=== PATIENT | female | born 1940 | race Caucasian/White ===

== ENCOUNTER 2019-01-14 13:06 | Inpatient (IN) | payer MEDICARE, OTHER, SELFPAY ==
[2019-01-14] VITALS (14 sets, daily range): BP systolic 70–180; BP diastolic 35–83; PULSE 60–103; RESP 14–21; TEMP 36.3–37.3; O2SAT 96–100
[2019-01-14] MEDS: Normal Saline 1,000 ML 1000 ML IV (13:46)
--- NOTE | 2019-01-14 13:49 | W.ED.GENAD ---
Discharge Plan Discharge Details Chief Complaint: Nausea/Vomit/Diar Primary Care Provider: Radhika,Local ED Provider: Jory Faust Home Meds and New Rx's Prescriptions: No Action atorvastatin 40 mg Tablet 40 mg PO DAILY RF: 0 metoprolol succinate 50 mg Tablet Extended Release 24 Hr 50 mg PO BID RF: 0 citalopram 10 mg Tablet 10 mg PO DAILY RF: 0 clopidogrel [Plavix] 75 mg Tablet 75 mg PO DAILY RF: 0 aspirin [Aspir-81] 81 mg Tablet,Delayed Release (Dr/Ec) 81 mg PO DAILY RF: 0 spironolactone 25 mg Tablet 25 mg PO DAILY RF: 0 lorazepam [Ativan] 1 mg Tablet 1 mg PO PRN PRNRF: 0 lisinopril 2.5 mg Tablet 2.5 mg PO DAILY RF: 0 levetiracetam 1,000 mg Tablet 1,000 mg PO BID RF: 0 Januvia 50 mg Tablet 50 mg PO DAILY RF: 0 Tresiba FlexTouch U-100 100 unit/mL (3 mL) Insulin Pen 24 unit SUBCUT HS RF: 0 Medical Decision Making Helena De La Cruz is a 78 y/o woman with h/o hypertension, coronary artery disease status post stents x6, insulin dependent diabetes presenting to the emergency department with abdominal pain, vomiting, diarrhea of sudden onset at 11:30 AM today, initially hypotensive in the emergency department. On exam patient is elderly and somewhat ill-appearing, appears uncomfortable. Mild tenderness palpation of the right lower quadrant on exam without peritoneal signs. Concern for mesenteric ischemia versus appendicitis versus gastroenteritis versus other. Plan for screening labs, IV fluid hydration, telemetry, IV morphine. Patient with leukocytosis, lactate elevated at 3.8, creatinine elevated at 1.7. Ceftriaxone and Flagyl initiated for leukocytosis, elevated lactate, unknown source of possible infectious process. Patient and her son report that she has no known history of kidney disease, suspect acute kidney injury secondary to today's illness. Given exam, history, elevated lactate, I have significant concern for mesenteric ischemia. I discussed imaging possibilities with Dr. Blackwell radiology, lower contrast dose options likely to be nondiagnostic. Plan for CTA abdomen/pelvis. I did discuss the plan with the patient and the risks of possible permanent kidney injury resulting in permanent dialysis. Patient verbalized understanding of this risk and agreed to the plan. We will continue IV fluid hydration. Per radiology CT shows colitis, vessels patent, no bowel obstruction. Plan to admit for colitis at this time. On reassessment patient reports pain improved. Blood pressure 140/60. We will continue IV fluid hydration. Clinical impression: Colitis Disposition: [facility] inpatient Medical Records Medical records reviewed: Yes I reviewed the patient's medical records. Imaging Data Radiologic Study: Attestation: I personally reviewed and interpreted this imaging study as follows: Radiologist's impression: 01/14/19 14:00 Stool Clostridioides difficile Screen - Final Laboratory Tests Range/Units 01/14/19 01/14/19 01/14/19 13:40 13:40 13:40 WBC (4.4-10.8) k/cumm 14.83 H RBC (4.00-5.20) m/cumm 4.73 Hgb (12.0-15.5) g/dL 13.8 Hct (36.0-46.0) % 42.0 MCV (80-95) fL 88.8 MCH (27.0-33.0) pg 29.2 MCHC (32.0-36.0) g/dL 32.9 RDW (11.7-14.6) % 13.3 Plt Count (130-400) x1000/uL 425 H MPV (8.0-11.0) fL 10.1 Immature Gran % 0.4 Neutrophils % 78.3 Lymphocytes % 14.0 Monocytes % 6.1 Eosinophils % 0.9 Basophils % 0.3 Absolute Neutrophils (1.2-6.7) k/cumm 11.61 H Absolute Lymphocytes (1.2-3.4) k/cumm 2.08 Absolute Monocytes (0.11-0.7) k/cumm 0.90 H Absolute Eosinophils (0.0-0.7) k/cumm 0.13 Absolute Basophils (0.0-0.2) k/cumm 0.04 PT (9.3-11.0) sec INR (0.9-1.1) Sodium (136-145) mmol/L 138 Potassium (3.5-5.1) mmol/L 3.9 Chloride (98-107) mmol/L 101 Carbon Dioxide (21.0-32.0) mmol/L 22.7 Anion Gap (3-11) mmol/L 14.3 H BUN (7-18) mg/dL 27 H Creatinine (0.55-1.02) mg/dL 1.73 H Estimated GFR/1.73 m2 (mL/min/1.73m2) 28.64 Glucose (74-106) mg/dL 264 H Lactate (0.6-1.4) mmol/L 3.8 H* Calcium (8.5-10.1) mg/dL 9.8 Magnesium (1.8-2.4) mg/dL 1.9 Total Bilirubin (0.2-1.0) mg/dL 0.8 AST (15-37) U/L 23 ALT (14-59) U/L 32 Alkaline Phosphatase (46-116) U/L 345 H Troponin I (<0.06) ng/Ml < 0.05 NT-Pro-B Natriuret Pep (<300) pg/mL 252 Total Protein (6.4-8.2) g/dL 8.4 H Albumin (3.4-5.0) g/dL 4.2 Lipase (73-393) U/L 428 H Patient ABO/Rh Antibody Screen Range/Units 01/14/19 01/14/19 13:40 13:40 WBC (4.4-10.8) k/cumm RBC (4.00-5.20) m/cumm Hgb (12.0-15.5) g/dL Hct (36.0-46.0) % MCV (80-95) fL MCH (27.0-33.0) pg MCHC (32.0-36.0) g/dL RDW (11.7-14.6) % Plt Count (130-400) x1000/uL MPV (8.0-11.0) fL Immature Gran % Neutrophils % Lymphocytes % Monocytes % Eosinophils % Basophils % Absolute Neutrophils (1.2-6.7) k/cumm Absolute Lymphocytes (1.2-3.4) k/cumm Absolute Monocytes (0.11-0.7) k/cumm Absolute Eosinophils (0.0-0.7) k/cumm Absolute Basophils (0.0-0.2) k/cumm PT (9.3-11.0) sec 10.4 INR (0.9-1.1) 1.0 Sodium (136-145) mmol/L Potassium (3.5-5.1) mmol/L Chloride (98-107) mmol/L Carbon Dioxide (21.0-32.0) mmol/L Anion Gap (3-11) mmol/L BUN (7-18) mg/dL Creatinine (0.55-1.02) mg/dL Estimated GFR/1.73 m2 (mL/min/1.73m2) Glucose (74-106) mg/dL Lactate (0.6-1.4) mmol/L Calcium (8.5-10.1) mg/dL Magnesium (1.8-2.4) mg/dL Total Bilirubin (0.2-1.0) mg/dL AST (15-37) U/L ALT (14-59) U/L Alkaline Phosphatase (46-116) U/L Troponin I (<0.06) ng/Ml NT-Pro-B Natriuret Pep (<300) pg/mL Total Protein (6.4-8.2) g/dL Albumin (3.4-5.0) g/dL Lipase (73-393) U/L Patient ABO/Rh A Negative Antibody Screen Negative Lab Data Lab results reviewed: Yes I reviewed the patient's lab results. Labs: 01/14/19 14:00 Stool Clostridioides difficile Screen - Final Laboratory Tests Range/Units 01/14/19 01/14/19 01/14/19 13:40 13:40 13:40 WBC (4.4-10.8) k/cumm 14.83 H RBC (4.00-5.20) m/cumm 4.73 Hgb (12.0-15.5) g/dL 13.8 Hct (36.0-46.0) % 42.0 MCV (80-95) fL 88.8 MCH (27.0-33.0) pg 29.2 MCHC (32.0-36.0) g/dL 32.9 RDW (11.7-14.6) % 13.3 Plt Count (130-400) x1000/uL 425 H MPV (8.0-11.0) fL 10.1 Immature Gran % 0.4 Neutrophils % 78.3 Lymphocytes % 14.0 Monocytes % 6.1 Eosinophils % 0.9 Basophils % 0.3 Absolute Neutrophils (1.2-6.7) k/cumm 11.61 H Absolute Lymphocytes (1.2-3.4) k/cumm 2.08 Absolute Monocytes (0.11-0.7) k/cumm 0.90 H Absolute Eosinophils (0.0-0.7) k/cumm 0.13 Absolute Basophils (0.0-0.2) k/cumm 0.04 PT (9.3-11.0) sec INR (0.9-1.1) Sodium (136-145) mmol/L 138 Potassium (3.5-5.1) mmol/L 3.9 Chloride (98-107) mmol/L 101 Carbon Dioxide (21.0-32.0) mmol/L 22.7 Anion Gap (3-11) mmol/L 14.3 H BUN (7-18) mg/dL 27 H Creatinine (0.55-1.02) mg/dL 1.73 H Estimated GFR/1.73 m2 (mL/min/1.73m2) 28.64 Glucose (74-106) mg/dL 264 H Lactate (0.6-1.4) mmol/L 3.8 H* Calcium (8.5-10.1) mg/dL 9.8 Magnesium (1.8-2.4) mg/dL 1.9 Total Bilirubin (0.2-1.0) mg/dL 0.8 AST (15-37) U/L 23 ALT (14-59) U/L 32 Alkaline Phosphatase (46-116) U/L 345 H Troponin I (<0.06) ng/Ml < 0.05 NT-Pro-B Natriuret Pep (<300) pg/mL 252 Total Protein (6.4-8.2) g/dL 8.4 H Albumin (3.4-5.0) g/dL 4.2 Lipase (73-393) U/L 428 H Patient ABO/Rh Antibody Screen Range/Units 01/14/19 01/14/19 13:40 13:40 WBC (4.4-10.8) k/cumm RBC (4.00-5.20) m/cumm Hgb (12.0-15.5) g/dL Hct (36.0-46.0) % MCV (80-95) fL MCH (27.0-33.0) pg MCHC (32.0-36.0) g/dL RDW (11.7-14.6) % Plt Count (130-400) x1000/uL MPV (8.0-11.0) fL Immature Gran % Neutrophils % Lymphocytes % Monocytes % Eosinophils % Basophils % Absolute Neutrophils (1.2-6.7) k/cumm Absolute Lymphocytes (1.2-3.4) k/cumm Absolute Monocytes (0.11-0.7) k/cumm Absolute Eosinophils (0.0-0.7) k/cumm Absolute Basophils (0.0-0.2) k/cumm PT (9.3-11.0) sec 10.4 INR (0.9-1.1) 1.0 Sodium (136-145) mmol/L Potassium (3.5-5.1) mmol/L Chloride (98-107) mmol/L Carbon Dioxide (21.0-32.0) mmol/L Anion Gap (3-11) mmol/L BUN (7-18) mg/dL Creatinine (0.55-1.02) mg/dL Estimated GFR/1.73 m2 (mL/min/1.73m2) Glucose (74-106) mg/dL Lactate (0.6-1.4) mmol/L Calcium (8.5-10.1) mg/dL Magnesium (1.8-2.4) mg/dL Total Bilirubin (0.2-1.0) mg/dL AST (15-37) U/L ALT (14-59) U/L Alkaline Phosphatase (46-116) U/L Troponin I (<0.06) ng/Ml NT-Pro-B Natriuret Pep (<300) pg/mL Total Protein (6.4-8.2) g/dL Albumin (3.4-5.0) g/dL Lipase (73-393) U/L Patient ABO/Rh A Negative Antibody Screen Negative ECG Data Attestation: I personally reviewed and interpreted this ECG (s) as follows: Interpretation: EKG shows sinus rhythm at 62, normal axis, T wave flattening inferiorly and anteriorly, poor R wave progression, no prior available for comparison, nondiagnostic EKG HPI General Mode of arrival: ambulatory. Date/Time Provider Initiated Documentation: 01/14/19 13:09. Limitations to Documentation: no limitations. Information obtained by: patient, family, RN notes reviewed and old records reviewed. HPI Narrative: Helena De La Cruz is a 78-year-old woman with a history of hypertension, coronary artery disease status post stents x6, insulin dependent diabetes presenting to the emergency department with abdominal pain, vomiting, diarrhea. Patient lives in [place], and traveled here to [place] to visit her son 1 week ago. Patient is accompanied to the emergency department by her son and [id number] who also provide the history. They report that patient has been in her usual state of health until today at approximately 1130am. Patient reports that she developed cramping lower abdominal pain that felt that she needed to have a bowel movement but could not, and she then subsequently developed vomiting and diarrhea. She reports that she has had 2 episodes of vomiting (yellow emesis) and 2 episodes of light brown diarrhea. She has had waxing and waning lower abdominal pain worse in the right lower quadrant since onset of symptoms. No fever, no cough, no shortness of breath, no rash, no numbness, no focal weakness. Does feel very generally weak since onset of symptoms. Was previously eating and drinking as usual. Related Data Home Medications Medication Instructions Recorded Confirmed aspirin [Aspir-81] 81 mg PO DAILY 01/14/19 01/14/19 atorvastatin 40 mg PO DAILY 01/14/19 01/14/19 citalopram 10 mg PO DAILY 01/14/19 01/14/19 clopidogrel [Plavix] 75 mg PO DAILY 01/14/19 01/14/19 insulin degludec [Tresiba 24 unit SUBCUT HS 01/14/19 01/14/19 FlexTouch U-100] levetiracetam 1,000 mg PO BID 01/14/19 01/14/19 lisinopril 2.5 mg PO DAILY 01/14/19 01/14/19 lorazepam [Ativan] 1 mg PO PRN PRN 01/14/19 01/14/19 metoprolol succinate 50 mg PO BID 01/14/19 01/14/19 sitagliptin [Januvia] 50 mg PO DAILY 01/14/19 01/14/19 spironolactone 25 mg PO DAILY 01/14/19 01/14/19 Allergies Allergy/AdvReac Type Severity Reaction Status Date / Time Latex, Natural Rubber Allergy Intermediate Itching Unverified 01/14/19 13:58 phenytoin [From Dilantin] Allergy Mild Itching Unverified 01/14/19 13:58 Sulfa (Sulfonamide AdvReac Mild Skin Rash Unverified 01/14/19 13:15 Antibiotics) General Stated Complaint: Nausea/Vomit/Diar PITO: 3 Review of Systems Narrative: Constitutional: denies fevers Eyes: denies eye pain ENT: denies facial pain, dental pain, sore throat Cardiovascular: denies chest pain, edema Respiratory: denies SOB, cough GI: Denies constipation, reports abdominal pain, vomiting, diarrhea : denies flank pain denies dysuria MSK: denies back pain, neck pain, arthralgias, myalgias Skin: denies rash Neuro: denies headaches, numbness, weakness PFSH Social History Smoking/Tobacco Use Status: Never Alcohol Intake: never Drug use: Never Substance use type: does not use Do you feel safe at home: Yes Do you feel safe in your relationship?: Yes Exam Narrative Exam Narrative: Constitutional: Elderly and somewhat ill-appearing, pleasant, conversing normally HENT: head atraumatic/normocephalic/normal inspection, mucous membranes dry Eyes: conjunctiva normal, sclera normal, pupils 3mm b/l Neck: no stridor, normal ROM, trachea midline Chest: normal inspection Resp: normal work of breathing, LCTAB Cardio: normal rate, normal rhythm, no murmur appreciated GI: abdomen soft, right lower quadrant focally tender to palpation without rebound or guarding, non-distended Back: normal inspection, no rash Skin: warm, dry, normal color, no rash Neuro: alert, not altered, grossly non-focal, normal tone Ext: no edema, no posterior calf tenderness to palpation Psych: normal mood, normal affect, normal behavior Course Vital Signs Vital signs: Vital Signs Temperature 36.3 C L 01/14/19 13:11 Respiratory Rate 14 01/14/19 13:11 Temperature 36.3 C L 01/14/19 13:11 Temperature Source Skin 01/14/19 13:11 Pulse 70 01/14/19 13:31 Respiratory Rate 18 01/14/19 13:31 Respiratory Effort 01/14/19 13:25 Blood Pressure 70/35 L 01/14/19 13:31 Pulse Oximetry 100 01/14/19 13:31 Oxygen Delivery Method Room Air 01/14/19 13:31 Oxygen Flow Rate 0 01/14/19 13:31 Pain Level 7 01/14/19 13:31 Comment 01/14/19 13:11
[2019-01-14 13:54] LABS: Abs Immature Grans 0.06 k/cumm (0.0-0.09); Absolute Basophil Count 0.04 k/cumm (0.0-0.2); Absolute Eosinophil Count 0.13 k/cumm (0.0-0.7); Absolute Lymphocyte Count 2.08 k/cumm (1.2-3.4); Absolute Neutrophil Count 11.61 k/cumm (1.2-6.7); Basophils % 0.3; Eosinophils % 0.9; HGB 13.8 g/dL (12.0-15.5); Immature Grans % 0.4; Lactate 3.8 mmol/L (0.6-1.4); Mean Corp. HGB Concentration 32.9 g/dL (32.0-36.0); Mean Corpuscular Hemoglobin 29.2 pg (27.0-33.0); Mean Corpuscular Volume 88.8 fL (80-95); Mean Platelet Volume 10.1 fL (8.0-11.0); Monocytes % 6.1; Neutrophils % 78.3; Platelet Count 425 x1000/uL (130-400); RBC 4.73 m/cumm (4.00-5.20); RBC Distribution Width 13.3 % (11.7-14.6); White Blood Cell Count 14.83 k/cumm (4.4-10.8)
[2019-01-14] MEDS: Ondansetron 4 MG/2 ML VIAL IVP (13:56)
[2019-01-14 14:15] LABS: ALT 32 U/L (14-59); AST 23 U/L (15-37); Albumin 4.2 g/dL (3.4-5.0); Alkaline Phosphatase 345 U/L (46-116); Anion Gap 14.3 mmol/L (3-11); BUN 27 mg/dL (7-18); Bilirubin, Total 0.8 mg/dL (0.2-1.0); CO2 22.7 mmol/L (21.0-32.0); CREATININE 1.73 mg/dL (0.55-1.02); Calcium 9.8 mg/dL (8.5-10.1); Chloride 101 mmol/L (98-107); Estimated GFR 28.64 (mL/min/1.73m2); Glucose 264 mg/dL (74-106); Lipase 428 U/L (73-393); Magnesium 1.9 mg/dL (1.8-2.4); NT-proBNP 252 pg/mL (<300); Potassium 3.9 mmol/L (3.5-5.1); Sodium 138 mmol/L (136-145); Total Protein 8.4 g/dL (6.4-8.2)
[2019-01-14 14:16] LABS: Troponin I < 0.05 ng/Ml (<0.06)
[2019-01-14] MEDS: cefTRIAXone 2 GM/50 ML BAG IVPB (14:18)
[2019-01-14 14:29] LABS: Prothrombin Time 10.4 sec (9.3-11.0)
--- NOTE | 2019-01-14 15:08 | DI.CT_ITS ---
EXAM: CT ABDOMEN AND PELVIS CTA CLINICAL HISTORY: abd pain, vomiting, diarrhea, elevated lactate TECHNIQUE: Imaging Protocol: Axial CT angiography was performed with multi-slice acquisition and m ulti-planar and/or 3D reconstructions. CONTRAST MATERIAL: Intravenous: Omnipaque 350 Contrast volume:100 mL contrast route:IV - Oral: No COMPARISON: No exams were available for comparison FINDINGS: Vascular Structures: Abdomen: [place]/SMA: No evidence of occlusion or significant stenosis. There is atherosclerosis. Renal Arteries: Moderately severe narrowing is seen at the origin of the left renal artery. The righ t renal artery shows atherosclerosis. No occlusion or significant stenosis is present. There is a s diogenes renal artery perfusing each kidney. Aorta: No aneurysm. No dissection. Pelvis: Iliac Arteries: No evidence of stenosis. Soft Tissues: Liver: Normal density. No measurable mass. Gallbladder and biliary tract: No radiodense calculus or dilation. Pancreas: Normal density, no abnormal calcifications or inflammatory process. Spleen: Normal. Kidneys: Normal size, contour and axis. No radiodense stones or obstructive uropathy. No masses seen. There is a small hypodense lesion in the superior aspect of the right kidney. This is indeterminate . This likely reflects a cyst. Adrenal glands: There is nodularity of the left adrenal gland. This likely reflects benign adenoma. The right adrenal gland is unremarkable. Aorta: Abdominal portion non-dilated. Bladder: Symmetric distention, no gross wall thickening. Bowel: There is [id number] thickening of the wall of the bowel from the distal descending colon into the sigmoid colon. There do appear to be a few scattered diverticula. Mild increased attenuat ion in the surrounding fat is noted. The findings are suspicious for colitis. Acute diverticulitis cannot be excluded. Remainder of the bowel is unremarkable. No evidence of an acute appendicitis is present. Peritoneal cavity: No ascites, collection or mesenteric inflammatory response. No significant abdomin al or pelvic adenopathy is present. Note is made of a small of fat-containing umbilical hernia Bones: Within normal limits for patient's age. IMPRESSION: 1. No evidence of occlusion or significant stenosis in the abdominal aorta, celiac axis or mesenteric arteries. Moderately severe narrowing seen at the origin of the left renal artery. 2. Bowel wall thickening in the distal descending colon into the sigmoid colon. There appear to be a few scattered diverticula. Acute diverticulitis cannot be excluded. Inflammatory or infectious col itis should also be considered 3. The findings were discussed with the Emergency Department on the date of the examination. DATA REPOSITORY: All CT scans at this facility are submitted to the National Radiology Data Registry (NRDR) Dose Index Registry (DIR) with the [employer] (ACR). RADIATION OPTIMIZATION: All CT scans at this facility use at least one of these dose optimization te chniques: automated exposure control; mA and/or kV adjustment per patient size (includes targeted exa ms where dose is matched to clinical indication); or iterative reconstruction.
[2019-01-14] MEDS: Omnipaque 350 MG/ML 100 ML BTL IV (15:19)
[2019-01-14] MEDS: metroNIDAZOLE 500 MG/100 ML BAG 100 MG IVPB ×2 (15:29→22:55)
[2019-01-14] MEDS: MORPHine 10 MG/ML VIAL 4 MG IVP (15:30)
--- NOTE | 2019-01-14 16:34 | HPE_ITS ---
Date of service: 01/14/19 Time of Service: 16:34 Assessment and Plan Assessment and plan (1) Infectious colitis: Start date: 01/14/19 Start time: 16:57 Status: Acute Assessment and plan: Patient is From out of town visiting son for the holidays, Colitis vs diverticulitis by imaging after severe abdominal pain with Diarrhea. WBC 14.83, Lactate 3.8. IVF Cipro and Flagyl IV Repeat Lactate pending Daily labs (2) NATALIYA (acute kidney injury): Start date: 01/14/19 Start time: 17:00 Status: Acute Assessment and plan: Known kidney disease per patient, likely in the setting of dehydration, see above. Patient also received IV contrast in setting of NATALIYA, likely to worsen, monitor closely. Hold Long acting insulin. Hold all nephrotoxic medications Gentle IVF Monitor Daily labs (3) CAD (coronary artery disease): Start date: 01/14/19 Start time: 17:01 Status: Chronic Assessment and plan: History of stent placement x 6 stents, currently lisinopril, BB and spirlactone, will continue BB due to NATALIYA. see above Recent Echo in November or December this year. Pt states everything looked good. Will obtain if needed. (4) Insulin dependent diabetes mellitus: Start date: 01/14/19 Start time: 17:06 Status: Chronic Assessment and plan: Recent A1c per patient was 9, started on tresbia 24 units sc HS. Patient will bring in pen for use once kidney function improves, she received IV contrast in ED in setting of NATALIYA. SSI Carb controlled diet. (5) Seizure: Start date: 01/14/19 Start time: 17:08 Status: Acute Assessment and plan: Likely due to brain tumors. On levetiracetam BID, reports no seizure since 2011. Continue daily dosing (6) Brain tumor: Start date: 01/14/19 Start time: 17:13 Status: Acute Assessment and plan: History of nonmalignant brain tumors followed by Neurology in [place]. Yearly MRI. (7) Rash: Start date: 01/14/19 Start time: 17:16 Status: Acute Assessment and plan: Itchy rash to Right ankle with scratch manrique. Patient states using cream without relief Hydrocortisone 2.5 TID (8) HTN (hypertension): Start date: 01/14/19 Start time: 17:16 Status: Chronic Assessment and plan: BP soft in the ED. Lisinopril on hold, BB with parameters (9) DVT prophylaxis: Start date: 01/14/19 Start time: 17:19 Status: Acute Assessment and plan: Chemical prophylaxis contraindicated in a patient with Brain tumor SCD TEDs The above case was discussed with Dr. Whitt who is in agreement. History of Present Illness History of Present Illness Chief Complaint: Abdominal pain, Colitis, N/V/D Narrative: 78 y.o female with PMH of DM on insulin, CAD x 6 stents, HTN, Seizures, and brain tumors, (followed by Neuro with yearly MRI) visiting here from [place] presents to [facility] ED with c/o sudden onset abdominal pain, vomiting, diarrhea. Labs in the ED reveal wbc 14.83, lactate 3.8, BUN 27 and creatinine 1.73, according to patient no history of CKD, this is an Acute injury likely from dehydration. Imaging obtained shows inflammatory or infectious colitis should be considered and diverticulitis can not be excluded. Patient is being admitted to m/s for IVF with IV antibiotics of cipro and flagyl. Repeat lactate pending. Cdiff negative. Patient states still feeling slightly nauseated but pain is improved. She denies CP, SOB. Review of Systems All systems reviewed & are unremarkable except as noted in HPI and below PFSH Social History Smoking/Tobacco Use Status: Never Alcohol Intake: never Drug use: Never Substance use type: does not use Do you feel safe at home: Yes Do you feel safe in your relationship?: Yes Meds Home Medications and Allergies Home Medications Medication Instructions Recorded Confirmed Type aspirin [Aspir-81] 81 mg PO DAILY 01/14/19 01/14/19 History atorvastatin 40 mg PO DAILY 01/14/19 01/14/19 History citalopram 10 mg PO DAILY 01/14/19 01/14/19 History clopidogrel [Plavix] 75 mg PO DAILY 01/14/19 01/14/19 History insulin degludec [Tresiba 24 unit SUBCUT HS 01/14/19 01/14/19 History FlexTouch U-100] levetiracetam 1,000 mg PO BID 01/14/19 01/14/19 History lisinopril 2.5 mg PO DAILY 01/14/19 01/14/19 History lorazepam [Ativan] 1 mg PO PRN PRN 01/14/19 01/14/19 History metoprolol succinate 50 mg PO BID 01/14/19 01/14/19 History sitagliptin [Januvia] 50 mg PO DAILY 01/14/19 01/14/19 History spironolactone 25 mg PO DAILY 01/14/19 01/14/19 History Allergies Allergy/AdvReac Type Severity Reaction Status Date / Time Latex, Natural Rubber Allergy Intermediate Itching Unverified 01/14/19 13:58 phenytoin [From Dilantin] Allergy Mild Itching Unverified 01/14/19 13:58 Sulfa (Sulfonamide AdvReac Mild Skin Rash Unverified 01/14/19 13:15 Antibiotics) Exam Const General: cooperative, healthy appearing and no acute distress Orientation: alert, awake and oriented x3 HENMT Head: normal to inspection Eyes Pupils: PERRL EOM: EOM intact bilaterally Neck Neck: normal visual inspection and no JVD Thyroid: thyroid normal Lymphatic: no lymphadenopathy noted and no lymphedema noted Chest Chest: normal inspection of the chest Resp Effort & Inspection: normal respiratory effort Auscultation: clear to auscultation bilaterally Cardio Jugular venous pressure: no JVD Rate: regular rate Rhythm: regular rhythm Heart Sounds: S1 normal GI Inspection: normal to inspection Palpation: firm Auscultation: hyperactive bowel sounds Other: pain to RLQ General: deferred Skin General skin exam: dry skin, excoriation(s) and lichenification Other: Multiple patchy areas with dry flakiness and scratching Neuro General: alert, awake and oriented x3 Extrem General: normal to inspection Psych Appearance: grossly normal Mood: congruent mood Attitude: cooperative Results Labs Result diagrams: 01/14/19 13:40 01/14/19 13:40 Labs: Laboratory Results - last 24 hr 01/14/19 01/14/19 01/14/19 13:40 13:40 13:40 WBC 14.83 H RBC 4.73 Hgb 13.8 Hct 42.0 MCV 88.8 MCH 29.2 MCHC 32.9 RDW 13.3 Plt Count 425 H MPV 10.1 Immature Gran % 0.4 Neutrophils % 78.3 Lymphocytes % 14.0 Monocytes % 6.1 Eosinophils % 0.9 Basophils % 0.3 Absolute Neutrophils 11.61 H Absolute Lymphocytes 2.08 Absolute Monocytes 0.90 H Absolute Eosinophils 0.13 Absolute Basophils 0.04 PT INR Sodium 138 Potassium 3.9 Chloride 101 Carbon Dioxide 22.7 Anion Gap 14.3 H BUN 27 H Creatinine 1.73 H Estimated GFR/1.73 m2 28.64 Glucose 264 H Lactate 3.8 H* Calcium 9.8 Magnesium 1.9 Total Bilirubin 0.8 AST 23 ALT 32 Alkaline Phosphatase 345 H Troponin I < 0.05 NT-Pro-B Natriuret Pep 252 Total Protein 8.4 H Albumin 4.2 Lipase 428 H Patient ABO/Rh Antibody Screen 01/14/19 01/14/19 13:40 13:40 WBC RBC Hgb Hct MCV MCH MCHC RDW Plt Count MPV Immature Gran % Neutrophils % Lymphocytes % Monocytes % Eosinophils % Basophils % Absolute Neutrophils Absolute Lymphocytes Absolute Monocytes Absolute Eosinophils Absolute Basophils PT 10.4 INR 1.0 Sodium Potassium Chloride Carbon Dioxide Anion Gap BUN Creatinine Estimated GFR/1.73 m2 Glucose Lactate Calcium Magnesium Total Bilirubin AST ALT Alkaline Phosphatase Troponin I NT-Pro-B Natriuret Pep Total Protein Albumin Lipase Patient ABO/Rh A Negative Antibody Screen Negative Last Vital Signs Temp 36.8 C 01/14/19 16:33 Pulse 79 01/14/19 16:33 Resp 16 01/14/19 16:33 BP 115/69 01/14/19 16:33 Pulse Ox 98 01/14/19 16:33
[2019-01-14 16:43] LABS: Troponin I < 0.05 ng/Ml (<0.06)
[2019-01-14] MEDS: Normal Saline 1,000 ML 75 ML IV (17:32)
[2019-01-14] MEDS: CIPROFLOXACIN 200 MG/100 ML BAG 100 MG IVPB (17:32)
[2019-01-14 17:39] LABS: Lactate 2.6 mmol/L (0.6-1.4)
[2019-01-14] MEDS: Insulin Aspart 300 UNITS/3 ML PEN SC ×2 (17:44→20:43)
[2019-01-14] MEDS: MORPHine 2 MG/ML SYR IVP ×3 (17:57→22:54)
[2019-01-14] MEDS: Metoprolol CR 50 MG TABCR PO (20:30)
[2019-01-14] MEDS: levETIRAcetam 500 MG TAB 1000 MG PO (20:30)
[2019-01-14] MEDS: Normal Saline Flush 10 ML SYR IVP ×2 (20:43→22:55)
[2019-01-15] VITALS (10 sets, daily range): BP systolic 114–156; BP diastolic 60–95; PULSE 59–77; RESP 16–20; TEMP 36.8–37.4; O2SAT 94–96
[2019-01-15] MEDS: metroNIDAZOLE 500 MG/100 ML BAG 100 MG IVPB ×3 (05:09→22:03)
[2019-01-15] MEDS: Normal Saline Flush 10 ML SYR IVP ×2 (05:09→17:04)
[2019-01-15 06:17] LABS: Bilirubin Negative (Negative); Blood Moderate (Negative); Clarity Clear (Clear); Glucose Negative (Negative); Ketones Negative (Negative); Leukocyte Esterase Negative (Negative); Nitrite Negative (Negative); Specific Gravity 1.015 (1.005-1.025); Urobilinogen 0.2 EU/dL (Up TO 0.2); pH 5.5 (5-8)
[2019-01-15 06:30] LABS: Epithelial Cells Few HPF (Negative)
[2019-01-15 06:31] LABS: Bacteria Rare HPF (Negative); C & S Indicated? Yes; Casts Negative LPF (Negative); Crystals Negative HPF (Negative); Mucus Heavy (Negative)
[2019-01-15 07:07] LABS: Abs Immature Grans 0.04 k/cumm (0.0-0.09); Absolute Basophil Count 0.01 k/cumm (0.0-0.2); Absolute Lymphocyte Count 0.67 k/cumm (1.2-3.4); Absolute Monocyte Count 1.28 k/cumm (0.11-0.7); Absolute Neutrophil Count 9.32 k/cumm (1.2-6.7); Basophils % 0.1; HGB 11.1 g/dL (12.0-15.5); Immature Grans % 0.4; Lymphocytes % 5.9; Mean Corp. HGB Concentration 32.6 g/dL (32.0-36.0); Mean Corpuscular Hemoglobin 29.3 pg (27.0-33.0); Mean Corpuscular Volume 89.7 fL (80-95); Monocytes % 11.3; Neutrophils % 82.3; Platelet Count 248 x1000/uL (130-400); RBC 3.79 m/cumm (4.00-5.20); RBC Distribution Width 13.3 % (11.7-14.6); White Blood Cell Count 11.32 k/cumm (4.4-10.8)
[2019-01-15 07:39] LABS: ALT 18 U/L (14-59); AST 14 U/L (15-37); Alkaline Phosphatase 186 U/L (46-116); Anion Gap 12.5 mmol/L (3-11); BUN 23 mg/dL (7-18); Bilirubin, Total 0.5 mg/dL (0.2-1.0); CO2 20.5 mmol/L (21.0-32.0); CREATININE 1.26 mg/dL (0.55-1.02); Calcium 8.2 mg/dL (8.5-10.1); Chloride 106 mmol/L (98-107); Estimated GFR 41.29 (mL/min/1.73m2); Glucose 219 mg/dL (74-106); Magnesium 1.4 mg/dL (1.8-2.4); Potassium 4.1 mmol/L (3.5-5.1); Sodium 139 mmol/L (136-145); Total Protein 6.3 g/dL (6.4-8.2)
[2019-01-15] MEDS: levETIRAcetam 500 MG TAB 1000 MG PO ×2 (08:03→19:41)
[2019-01-15] MEDS: Aspirin E.C. 81 MG TABEC PO (08:04)
[2019-01-15] MEDS: Clopidogrel 75 MG TAB PO (08:04)
[2019-01-15] MEDS: Insulin Aspart 300 UNITS/3 ML PEN SC ×4 (08:04→22:00)
[2019-01-15] MEDS: Atorvastatin 40 MG TAB PO (08:04)
[2019-01-15] MEDS: Citalopram 10 MG TAB PO (08:04)
[2019-01-15] MEDS: Metoprolol CR 50 MG TABCR PO ×2 (08:04→19:41)
[2019-01-15 08:19] LABS: C-Reactive Protein 8.77 mg/dL (0.0-0.3)
[2019-01-15] MEDS: MORPHine 2 MG/ML SYR IVP ×2 (09:05→17:02)
[2019-01-15] MEDS: MAGNESIUM SULFATE 2 GM/50 ML BAG IVPB (11:42)
--- NOTE | 2019-01-15 11:45 | INITIAL_ITS ---
- If Service Date Differs Date of service: 01/15/19 Time of Service: 11:45 Care Management Initial Assess REASON FOR HOSPITALIZATION:: Acute Colitis, NATALIYA PAST MEDICAL HISTORY/PAST SURGICAL HISTORY:: Medical History. DVT prophylaxis, HTN, Rash, Brain Tumor, Seizure, Insulin dependent diabetes mellitus, CAD, Infectious colitis, NATALIYA PREVIOUS FUNCTIONAL STATUS/SOCIAL/FAMILY SUPPORTS:: Helena lives in [place], and was in [place] visiting her son for the holiday when she was admitted to [facility]. She has six children, many of which do not live close to her. She is retired from [employer] for [employer]. She is independent at baseline with her ADL's but does not drive. CURRENT FUNCTIONAL STATUS:: Helena was sitting up in her bed when CM met with her. She stated that she is feeling better than when she arrived at [facility]. CM discussed the options for services in Helena's community, and gave recommendations for her to follow up with her PCP regarding optional community supports in her area. She reported that she is hoping to return home on 01/19/19, as long as she is medically ready to go. CM will continue to follow. ADVANCE DIRECTIVES:: None on file Has patient been provided with information about the portal?: No Did the patient sign up for the portal?: No CODE STATUS:: Full Code INSURANCE COVERAGE / FINANCIAL ISSUES:: [facility]/ [employer] CURRENT HOME/COMMUNITY SERVICES/EQUIPMENT:: Helena currently has a cane at home, but does not use it. She does not have any services in the community at this time. PRIMARY CARE PHYSICIAN:: Not local POTENTIAL DISCHARGE NEEDS:: Evaluation for further needs, follow up appointments PATIENT/FAMILY EDUCATION NEEDS:: Review discharge instructions, discussion of self care need including Ask Me Three ANTICIPATED BARRIERS TO DISCHARGE:: None identified TRANSPORTATION:: Anticipate Helena will be driven home by family via private vehicle PLAN:: Anticipate Helena will return home with no additional services once she is medically cleared. She will follow up with her local PCP, as recommended. Her family will drive her home when she is ready. CM will continue to follow.
[2019-01-15 12:34] LABS: HCT 34.8 % (36.0-46.0); HGB 11.3 g/dL (12.0-15.5)
[2019-01-15] MEDS: Normal Saline 1,000 ML 75 ML IV (14:08)
--- NOTE | 2019-01-15 14:26 | CHAPLAIN ---
Helena was visiting her son (a teacher at the [employer]) and daughter in law, when she began to not feel well. She was scheduled to fly home to [place] today She's also had some reaction, from about a year ago, she said, that has caused her skin to itch. CARMELLA Cohen, was applying cream to Helena's skin. Helena's daughter in law was visiting with her. Helena said she is beginning to feel better, but didn't get much sleep last night. I explained my role and offered support.
--- NOTE | 2019-01-15 15:26 | W.PM.PROGNOT ---
Date of Service Date of service: 01/15/19 Time of Service: 15:26 Assessment and Plan Assessment and plan (1) Infectious colitis: Status: Acute Assessment and plan: Colitis vs Diverticulitis. Symptoms improving, white blood cell count improving, lactate normalize, afebrile. Blood noted in stool in the setting of history of coronary artery disease with cardiac stents x6 on dual antiplatelet therapy with aspirin and Plavix. Discussed case with general surgery, Dr. Salcido agrees with the current management. Continue Cipro and flagyl with gentle IV fluids. H&H stabilized. Repeat CBC in the morning. Will need follow-up when she gets back to [place], will need colonoscopy as an outpatient. (2) NATALIYA (acute kidney injury): Status: Acute Assessment and plan: Creatinine improved to 1.26 today from 1.73 on admission. Continue gentle IV fluids. Reassess BMP tomorrow morning. (3) CAD (coronary artery disease): Status: Chronic Assessment and plan: History of coronary artery disease with 6 cardiac stents placed approximately 3 years ago. Continue aspirin and Plavix and monitor hemoglobin and hematocrit closely. Continue beta elmer. Repeat CBC tomorrow morning. (4) Insulin dependent diabetes mellitus: Status: Chronic Assessment and plan: Her blood glucose is elevated in the 200s. Her long-acting insulin was on hold at the time of her admission. Resume Tresiba at at bedtime at 1/2 her usual dose. Continue to monitor blood glucose at with short acting insulin per sliding scale. (5) Seizure: Status: Acute Assessment and plan: Likely due to brain tumors. Has not had a seizure in a couple of years. Continue Keppra. (6) Brain tumor: Status: Acute Assessment and plan: History of benign brain tumors with excision at age 60. Most recent MRI showed 2 small posterior brain tumors, per patient. She is followed by neurology in [place], no plans for intervention at this time. (7) Rash: Status: Acute Assessment and plan: Nonhealing pruritic rash to right medial ankle. Place wound consult for evaluation. Patient has been using antifungal cream without improvement. (8) HTN (hypertension): Status: Chronic Assessment and plan: Blood pressure within an acceptable range with lisinopril on hold in the setting of acute kidney injury. Continue to hold lisinopril. Continue to monitor blood pressure. Continue metoprolol. (9) Hypomagnesemia: Status: Acute Assessment and plan: Replete and monitor. (10) DVT prophylaxis: Status: Acute Assessment and plan: Continue dual antiplatelet therapy. SCDs and TEDs for mechanical DVT prophylaxis. (11) Discharge planning issues: Status: Acute Assessment and plan: She is a full code. She resides in [place]. She is in [place] visiting her son. She will need follow up when she returns to [place]. This case was discussed with Dr. Whitt who is in agreement. Subjective Subjective Interval history since last seen: Ms De La Cruz reports feeling better today. Her abdomen continues to feel tender, but the pain has improved from admission. She also reports that the diarrhea has decreased significantly. She reports blood in her stool this morning. She denies having hemorrhoids. She is tolerating a clear liquid diet. She denies nausea, vomiting or diarrhea. No dizziness, shortness of breath, coughing, wheezing, chest pain/pressure or palpitations. She reported to nursing that she ate salad at a restaurant the day prior to symptom onset. She has a history of cardiac stents x6, placed about 3 years ago. She is on DAPT. 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 She had a large benign tumor excised at age 60, she reports having 2 small posterior tumors noted on her most recent MRI, with no plans for surgery as they are not a problem at this time, according to her neurologist. She remains on Keppra, she has not had a seizure for years. Exam Narrative Exam Narrative: General: elderly female, laying in bed with head elevated, cloth wrap around head. Alert and oriented, pleasant and cooperative. HEENT: EOMI, pupils equal and round, mucous membranes moist. Neck: supple, no JVD. Respiratory: respirations even and unlabored, lung sounds clear throughout. Cardiovascular: Heart has regular rate and rhythm, no murmur appreciated. GI: normoactive bowel sounds, abdomen soft, tenderness noted on palpation across lower abdomen. Extremities: wound noted to right medial ankle, covered with dressing with mild erythema surrounding site. Trace edema to bilateral ankles. Pedal pulses palpable bilaterally. Objective Objective Clinical Data: Abnormal lab results 01/14/19 01/15/19 01/15/19 Range/Units 17:20 05:45 06:55 WBC (4.4-10.8) k/cumm RBC (4.00-5.20) m/cumm Hgb (12.0-15.5) g/dL Hct (36.0-46.0) % Absolute Neutrophils (1.2-6.7) k/cumm Absolute Lymphocytes (1.2-3.4) k/cumm Absolute Monocytes (0.11-0.7) k/cumm Carbon Dioxide 20.5 L (21.0-32.0) mmol/L Anion Gap 12.5 H (3-11) mmol/L BUN 23 H (7-18) mg/dL Creatinine 1.26 H (0.55-1.02) mg/dL Glucose 219 H (74-106) mg/dL Lactate 2.6 H* (0.6-1.4) mmol/L Calcium 8.2 L (8.5-10.1) mg/dL Magnesium 1.4 L (1.8-2.4) mg/dL AST 14 L (15-37) U/L Alkaline Phosphatase 186 H (46-116) U/L C-Reactive Protein 8.77 H (0.0-0.3) mg/dL Total Protein 6.3 L (6.4-8.2) g/dL Albumin 3.0 L (3.4-5.0) g/dL Urine Blood Moderate H (Negative) Urine RBC 5-10 H (0-2) HPF 01/15/19 01/15/19 Range/Units 06:55 12:25 WBC 11.32 H (4.4-10.8) k/cumm RBC 3.79 L (4.00-5.20) m/cumm Hgb 11.1 L D 11.3 L (12.0-15.5) g/dL Hct 34.0 L 34.8 L (36.0-46.0) % Absolute Neutrophils 9.32 H (1.2-6.7) k/cumm Absolute Lymphocytes 0.67 L (1.2-3.4) k/cumm Absolute Monocytes 1.28 H (0.11-0.7) k/cumm Carbon Dioxide (21.0-32.0) mmol/L Anion Gap (3-11) mmol/L BUN (7-18) mg/dL Creatinine (0.55-1.02) mg/dL Glucose (74-106) mg/dL Lactate (0.6-1.4) mmol/L Calcium (8.5-10.1) mg/dL Magnesium (1.8-2.4) mg/dL AST (15-37) U/L Alkaline Phosphatase (46-116) U/L C-Reactive Protein (0.0-0.3) mg/dL Total Protein (6.4-8.2) g/dL Albumin (3.4-5.0) g/dL Urine Blood (Negative) Urine RBC (0-2) HPF Vital Signs Temperature 37 C 01/15/19 11:50 Temperature Source Tympanic 01/15/19 11:50 Pulse 61 01/15/19 11:50 Pulse Rhythm Regular 01/15/19 09:00 Respiratory Rate 20 01/15/19 11:50 Respiratory Effort Non-Labored 01/15/19 09:00 Respiratory Depth Normal 01/15/19 09:00 Respiratory Pattern Normal 01/15/19 09:00 Blood Pressure 135/63 01/15/19 11:50 Pulse Oximetry 96 01/15/19 11:50 Oxygen Delivery Method Room Air 01/15/19 11:50 Oxygen Flow Rate 0 01/15/19 11:50 Pain Level 0 01/15/19 11:50 Comment 01/14/19 13:11 Intake & Output 01/14/19 01/15/19 01/15/19 23:59 11:59 23:59 Intake Total 760 / 760 610 / 1610 1000 / 1610 Output Total 350 / 350 100 / 300 200 / 300 Balance 410 / 410 510 / 1310 800 / 1310 Weight 68.039 kg 68.9 kg Intake: IV 760 / 760 210 / 1210 1000 / 1210 Oral 400 / 400 Output: Urine 350 / 350 100 / 300 200 / 300 Other: Urine Color Light Racheal Urine Appearance Clear Clear Urine Odor Normal Comment wet brief, 150 in hat. Sample not sent as stool was mixed in. Pt educated about clean catch. mixed with loose stool Stool Occult Blood Positive Stool Size Small Smear Stool Characteristics Liquid Bloody Brown Emesis Description Bile Voiding Methods Toilet Laboratory Results WBC 11.32 k/cumm (4.4-10.8) H 01/15/19 06:55 RBC 3.79 m/cumm (4.00-5.20) L 01/15/19 06:55 Hgb 11.3 g/dL (12.0-15.5) L 01/15/19 12:25 Hct 34.8 % (36.0-46.0) L 01/15/19 12:25 MCV 89.7 fL (80-95) 01/15/19 06:55 MCH 29.3 pg (27.0-33.0) 01/15/19 06:55 MCHC 32.6 g/dL (32.0-36.0) 01/15/19 06:55 RDW 13.3 % (11.7-14.6) 01/15/19 06:55 Plt Count 248 x1000/uL (130-400) D 01/15/19 06:55 MPV 10.0 fL (8.0-11.0) 01/15/19 06:55 Immature Gran % 0.4 01/15/19 06:55 Neutrophils % 82.3 01/15/19 06:55 Lymphocytes % 5.9 01/15/19 06:55 Monocytes % 11.3 01/15/19 06:55 Eosinophils % 0.0 01/15/19 06:55 Basophils % 0.1 01/15/19 06:55 Absolute Neutrophils 9.32 k/cumm (1.2-6.7) H 01/15/19 06:55 Absolute Lymphocytes 0.67 k/cumm (1.2-3.4) L 01/15/19 06:55 Absolute Monocytes 1.28 k/cumm (0.11-0.7) H 01/15/19 06:55 Absolute Eosinophils 0.00 k/cumm (0.0-0.7) 01/15/19 06:55 Absolute Basophils 0.01 k/cumm (0.0-0.2) 01/15/19 06:55 PT 10.4 sec (9.3-11.0) 01/14/19 13:40 INR 1.0 (0.9-1.1) 01/14/19 13:40 Sodium 139 mmol/L (136-145) 01/15/19 06:55 Potassium 4.1 mmol/L (3.5-5.1) 01/15/19 06:55 Chloride 106 mmol/L (98-107) 01/15/19 06:55 Carbon Dioxide 20.5 mmol/L (21.0-32.0) L 01/15/19 06:55 Anion Gap 12.5 mmol/L (3-11) H 01/15/19 06:55 BUN 23 mg/dL (7-18) H 01/15/19 06:55 Creatinine 1.26 mg/dL (0.55-1.02) H 01/15/19 06:55 Estimated GFR/1.73 m2 41.29 (mL/min/1.73m2) 01/15/19 06:55 Glucose 219 mg/dL (74-106) H 01/15/19 06:55 Lactate 1.0 mmol/L (0.6-1.4) 01/15/19 06:55 Calcium 8.2 mg/dL (8.5-10.1) L 01/15/19 06:55 Magnesium 1.4 mg/dL (1.8-2.4) L 01/15/19 06:55 Total Bilirubin 0.5 mg/dL (0.2-1.0) 01/15/19 06:55 Conjugated Bilirubin 0.10 mg/dL (0.00-0.20) 01/15/19 06:55 AST 14 U/L (15-37) L 01/15/19 06:55 ALT 18 U/L (14-59) 01/15/19 06:55 Alkaline Phosphatase 186 U/L (46-116) H 01/15/19 06:55 Troponin I < 0.05 ng/Ml (<0.06) 01/14/19 16:20 C-Reactive Protein 8.77 mg/dL (0.0-0.3) H 01/15/19 06:55 NT-Pro-B Natriuret Pep 252 pg/mL (<300) 01/14/19 13:40 Total Protein 6.3 g/dL (6.4-8.2) L 01/15/19 06:55 Albumin 3.0 g/dL (3.4-5.0) L 01/15/19 06:55 Lipase 428 U/L (73-393) H 01/14/19 13:40 Urine Color Yellow (Yellow) 01/15/19 05:45 Urine Clarity Clear (Clear) 01/15/19 05:45 Urine pH 5.5 (5-8) 01/15/19 05:45 Ur Specific [place] 1.015 (1.005-1.025) 01/15/19 05:45 Urine Protein Negative mg/dL (Negative) 01/15/19 05:45 Urine Ketones Negative mg/dL (Negative) 01/15/19 05:45 Urine Blood Moderate (Negative) H 01/15/19 05:45 Urine Nitrite Negative (Negative) 01/15/19 05:45 Urine Bilirubin Negative (Negative) 01/15/19 05:45 Urine Urobilinogen 0.2 EU/dL (Up TO 0.2) 01/15/19 05:45 Ur Leukocyte Esterase Negative (Negative) 01/15/19 05:45 Urine RBC 5-10 HPF (0-2) H 01/15/19 05:45 Urine WBC 3-5 HPF (0-5) 01/15/19 05:45 Ur Epithelial Cells Few HPF (Negative) 01/15/19 05:45 Urine Crystals Negative HPF (Negative) 01/15/19 05:45 Urine Bacteria Rare HPF (Negative) 01/15/19 05:45 Urine Casts Negative LPF (Negative) 01/15/19 05:45 Urine Mucus Heavy (Negative) 01/15/19 05:45 Ur Culture Indicated? Yes 01/15/19 05:45 Urine Glucose Negative mg/dL (Negative) 01/15/19 05:45 Stool Campylobacter PCR Cancelled 01/15/19 03:50 Stool Salmonella PCR Cancelled 01/15/19 03:50 Stool Shigella PCR Cancelled 01/15/19 03:50 Shiga Toxin (PCR) Cancelled 01/15/19 03:50 Patient ABO/Rh A Negative 01/14/19 13:40 Antibody Screen Negative 01/14/19 13:40
--- NOTE | 2019-01-15 15:30 | PHARADMIT ---
Admission Pharmacy Clinical Review ACUTE COLITIS, NATALIYA Code Status Full Code Current Weight 68.9 kg Renally Cleared and Narrow Therapeutic Index Meds CrCl~30ml/min QTc Value / Action Taken QTC 455 BP Control, Fever BP 135/63 Afebrile Electrolytes reviewed K+ 4.1, Mag 1.4 DVT Prophylaxis Stool heme positive (Heparin SC dc'd) Opiate Usage / Scheduled Bowel Regimen Ordered Plt/SCr for Heparin / Enoxaparin Plt 248 SCr 1.26 (down from 1.73 on admission) INR for Warfarin H/H stable, WBC/Bands H/H11.3/34.8 (down from 13.8/42.0) WBC 11.32 (down from 14.83) Antibiotic appropriateness Cipro/Flagyl IV Cultures and Sensitivities Urine pending C.Diff negative Surgical ABX d/c within 24 hr DM control / Insulin Dosing BG 219 (Novolog scale) Heart Failure (Check EF%) (ROSEMARY's, B-Block, Diuretics) Toprol IV to PO Switch Home Meds Reviewed Pt's own Tresiba insulin-brought in, return at discharge in addition to pill pack in pharmacy lock box Home Meds Not Ordered Lisinopril, Lorazepam, Spironolactone, Januvia Comments Surgical consult Visiting family, she is from [place]
--- NOTE | 2019-01-15 16:46 | W.SURGCON ---
Date of service: 01/15/19 Time of Service: 16:46 Assessment and Plan Assessment and plan (1) Infectious colitis: Status: Acute Assessment and plan: A\\ Diarrhea with signs of inflamed colon on CT scan. This could be viral, bacterial and possible have a component of ischemia due to her N/V and diarrhea. Her lactate was increased, she has NATALIYA and she was hypotension in the ER. It looks like she is clinically improving. I agree with non-surgical management at this time with antibiotics and low fiber diet. Patient should follow up in [place] with her PCP and have a follow up colonoscopy in 6 weeks. P\\ Discharge when medically stable. Will have her get colonoscopy back in [place] unless she starts to have increased bleeding and diarrhea. We will sign off at this time. Please re-consult if patients condition deteriorates. Thank you for this consult History of Present Illness History of Present Illness Chief Complaint: Colitis vs Diverticulitis Narrative: t 78 y.o female with PMH of DM on insulin, CAD x 6 stents, HTN, Seizures, and brain tumors, (followed by Neuro with yearly MRI) visiting here from [place] presents to [facility] ED on 01/14/19 with c/o sudden onset abdominal pain, vomiting, diarrhea. Labs in the ED reveal wbc 14.83, lactate 3.8, BUN 27 and creatinine 1.73, according to patient no history of CKD, this is an Acute injury likely from dehydration. Imaging obtained shows inflammatory or infectious colitis should be considered and diverticulitis can not be excluded. Patient was admitted to /s for IVF with IV antibiotics of cipro and flagyl. Repeat lactate was normal. Cdiff negative. Patient states still feeling slightly nauseated but pain is improved. She denies CP, SOB. I was asked to see patient for potential Colonoscopy. The patient tells me that she has had 2 normal colonoscopies in the past and both have been normal. She just received a notice in the mail, prior to coming to [place], to have another Colonoscopy. She has never had anything like this before. Today she has tolerated a clear liquid diet. She has had only one Loose BM this morning with a little bit of blood. Consults Consult date: 01/15/19 Requesting physician: Thi Whitt Review of Systems Constitutional Constitutional: Denies fever(s), Reports poor appetite and Denies weight loss Eyes Eyes: Denies change in vision ENT Ears, Nose, Mouth, and Throat: Denies dysphagia Cardiovascular Cardiovascular: Denies chest pain, Denies chest pain at rest, Denies chest pain with activity, Denies dyspnea and Denies dyspnea on exertion Respiratory Respiratory: Denies chest congestion, Denies cough, Denies dyspnea and Denies dyspnea on exertion Gastrointestinal Gastrointestinal: Reports as per HPI and Denies dysphagia Genitourinary Genitourinary: Denies hematuria and Denies dysuria Musculoskeletal Musculoskeletal: Reports system reviewed and no additional complaints, except as docu [facility] Medical History (Updated 01/15/19 @ 16:56 by Trini Salcido MD) Brain tumor (Acute) CAD (coronary artery disease) (Chronic) HTN (hypertension) (Chronic) Insulin dependent diabetes mellitus (Chronic) Seizure (Acute) Surgical History (Updated 01/15/19 @ 16:56 by Trini Salcido MD) H/O heart artery stent (Chronic) S/P brain surgery (Acute) Social History Smoking/Tobacco Use Status: Never Alcohol Intake: never Drug use: Never Substance use type: does not use Do you feel safe at home: Yes Do you feel safe in your relationship?: Yes Exam Const General: cooperative, comfortable and no acute distress Orientation: alert and oriented x3 HENMT Head: normocephalic and atraumatic Resp Effort & Inspection: normal respiratory effort Auscultation: clear to auscultation bilaterally Cardio Rate: regular rate Rhythm: regular rhythm Heart Sounds: no gallops, no murmurs and no rubs GI Inspection: normal to inspection Palpation: soft, no hepatosplenomegaly and hernia (mild LLQ, no rebound or guarding) Results Last Vital Signs Temp 98.2 F 01/15/19 16:22 Pulse 74 01/15/19 16:22 Resp 18 01/15/19 16:22 BP 136/70 01/15/19 16:22 Pulse Ox 94 L 01/15/19 16:22 Labs Result diagrams: 01/15/19 12:25 01/15/19 06:55 Labs: Laboratory Results - last 24 hr 01/14/19 01/15/19 01/15/19 17:20 03:50 05:45 WBC RBC Hgb Hct MCV MCH MCHC RDW Plt Count MPV Immature Gran % Neutrophils % Lymphocytes % Monocytes % Eosinophils % Basophils % Absolute Neutrophils Absolute Lymphocytes Absolute Monocytes Absolute Eosinophils Absolute Basophils Sodium Potassium Chloride Carbon Dioxide Anion Gap BUN Creatinine Estimated GFR/1.73 m2 Glucose Lactate 2.6 H* Calcium Magnesium Total Bilirubin Conjugated Bilirubin AST ALT Alkaline Phosphatase C-Reactive Protein Total Protein Albumin Urine Color Yellow Urine Clarity Clear Urine pH 5.5 Ur Specific [place] 1.015 Urine Protein Negative Urine Ketones Negative Urine Blood Moderate H Urine Nitrite Negative Urine Bilirubin Negative Urine Urobilinogen 0.2 Ur Leukocyte Esterase Negative Urine RBC 5-10 H Urine WBC 3-5 Ur Epithelial Cells Few Urine Crystals Negative Urine Bacteria Rare Urine Casts Negative Urine Mucus Heavy Ur Culture Indicated? Yes Urine Glucose Negative Stool Campylobacter PCR Cancelled Stool Salmonella PCR Cancelled Stool Shigella PCR Cancelled Shiga Toxin (PCR) Cancelled 01/15/19 01/15/19 01/15/19 06:55 06:55 06:55 WBC 11.32 H RBC 3.79 L Hgb 11.1 L D Hct 34.0 L MCV 89.7 MCH 29.3 MCHC 32.6 RDW 13.3 Plt Count 248 D MPV 10.0 Immature Gran % 0.4 Neutrophils % 82.3 Lymphocytes % 5.9 Monocytes % 11.3 Eosinophils % 0.0 Basophils % 0.1 Absolute Neutrophils 9.32 H Absolute Lymphocytes 0.67 L Absolute Monocytes 1.28 H Absolute Eosinophils 0.00 Absolute Basophils 0.01 Sodium 139 Potassium 4.1 Chloride 106 Carbon Dioxide 20.5 L Anion Gap 12.5 H BUN 23 H Creatinine 1.26 H Estimated GFR/1.73 m2 41.29 Glucose 219 H Lactate 1.0 Calcium 8.2 L Magnesium 1.4 L Total Bilirubin 0.5 Conjugated Bilirubin 0.10 AST 14 L ALT 18 Alkaline Phosphatase 186 H C-Reactive Protein 8.77 H Total Protein 6.3 L Albumin 3.0 L Urine Color Urine Clarity Urine pH Ur Specific [place] Urine Protein Urine Ketones Urine Blood Urine Nitrite Urine Bilirubin Urine Urobilinogen Ur Leukocyte Esterase Urine RBC Urine WBC Ur Epithelial Cells Urine Crystals Urine Bacteria Urine Casts Urine Mucus Ur Culture Indicated? Urine Glucose Stool Campylobacter PCR Stool Salmonella PCR Stool Shigella PCR Shiga Toxin (PCR) 01/15/19 12:25 WBC RBC Hgb 11.3 L Hct 34.8 L MCV MCH MCHC RDW Plt Count MPV Immature Gran % Neutrophils % Lymphocytes % Monocytes % Eosinophils % Basophils % Absolute Neutrophils Absolute Lymphocytes Absolute Monocytes Absolute Eosinophils Absolute Basophils Sodium Potassium Chloride Carbon Dioxide Anion Gap BUN Creatinine Estimated GFR/1.73 m2 Glucose Lactate Calcium Magnesium Total Bilirubin Conjugated Bilirubin AST ALT Alkaline Phosphatase C-Reactive Protein Total Protein Albumin Urine Color Urine Clarity Urine pH Ur Specific [place] Urine Protein Urine Ketones Urine Blood Urine Nitrite Urine Bilirubin Urine Urobilinogen Ur Leukocyte Esterase Urine RBC Urine WBC Ur Epithelial Cells Urine Crystals Urine Bacteria Urine Casts Urine Mucus Ur Culture Indicated? Urine Glucose Stool Campylobacter PCR Stool Salmonella PCR Stool Shigella PCR Shiga Toxin (PCR)
[2019-01-15] MEDS: CIPROFLOXACIN 200 MG/100 ML BAG 100 MG IVPB (17:03)
[2019-01-15] MEDS: Acetaminophen 325 MG TAB PO (22:00)
[2019-01-16] VITALS (10 sets, daily range): BP systolic 103–159; BP diastolic 53–70; PULSE 65–80; RESP 16–18; TEMP 36.7–37.2; O2SAT 93–97
[2019-01-16] MEDS: Normal Saline 1,000 ML 75 ML IV (05:23)
[2019-01-16] MEDS: metroNIDAZOLE 500 MG/100 ML BAG 100 MG IVPB ×3 (05:24→22:02)
[2019-01-16 06:45] LABS: Abs Immature Grans 0.03 k/cumm (0.0-0.09); Absolute Basophil Count 0.01 k/cumm (0.0-0.2); Absolute Eosinophil Count 0.08 k/cumm (0.0-0.7); Absolute Lymphocyte Count 0.59 k/cumm (1.2-3.4); Absolute Neutrophil Count 6.68 k/cumm (1.2-6.7); Basophils % 0.1; HCT 30.5 % (36.0-46.0); Immature Grans % 0.4; Lymphocytes % 7.1; Mean Corp. HGB Concentration 32.8 g/dL (32.0-36.0); Mean Corpuscular Hemoglobin 29.4 pg (27.0-33.0); Mean Corpuscular Volume 89.7 fL (80-95); Mean Platelet Volume 9.8 fL (8.0-11.0); Monocytes % 10.9; Neutrophils % 80.5; Platelet Count 229 x1000/uL (130-400); RBC Distribution Width 13.3 % (11.7-14.6); White Blood Cell Count 8.29 k/cumm (4.4-10.8)
[2019-01-16 07:06] LABS: Anion Gap 9.8 mmol/L (3-11); BUN 12 mg/dL (7-18); CO2 22.2 mmol/L (21.0-32.0); CREATININE 1.04 mg/dL (0.55-1.02); Calcium 8.1 mg/dL (8.5-10.1); Chloride 110 mmol/L (98-107); Estimated GFR 51.52 (mL/min/1.73m2); Glucose 179 mg/dL (74-106); Potassium 3.8 mmol/L (3.5-5.1); Sodium 142 mmol/L (136-145)
[2019-01-16] MEDS: Clopidogrel 75 MG TAB PO (09:01)
[2019-01-16] MEDS: Insulin Aspart 300 UNITS/3 ML PEN SC ×4 (09:01→22:02)
[2019-01-16] MEDS: Atorvastatin 40 MG TAB PO (09:01)
[2019-01-16] MEDS: Aspirin E.C. 81 MG TABEC PO (09:01)
[2019-01-16] MEDS: Metoprolol CR 50 MG TABCR PO ×2 (09:01→20:24)
[2019-01-16] MEDS: Citalopram 10 MG TAB PO (09:01)
[2019-01-16] MEDS: levETIRAcetam 500 MG TAB 1000 MG PO ×2 (09:01→20:24)
[2019-01-16] MEDS: Acetaminophen 325 MG TAB PO (11:36)
--- NOTE | 2019-01-16 12:11 | PGE_ITS ---
Date of Service Date of service: 01/16/19 Time of Service: 12:12 Assessment and Plan Assessment and plan (1) Infectious colitis: Status: Acute Assessment and plan: Colitis vs Diverticulitis. Increased abdominal pain with advance diet. Leukocytosis resolved, lactate normal, remains afebrile. Blood noted in stool in the setting of history of coronary artery disease with cardiac stents x6 on dual antiplatelet therapy with aspirin and Plavix. She was seen by general surgery, Dr. Salcido who agrees with the current management. Continue Cipro and flagyl. IV fluids discontinued. Diet decreased to clear liquids only due to increased abdominal pain. Her hemoglobin is down to 10 today, in the setting of IV fluids. Continues to have small amount of blood per rectum. Repeat blood count tomorrow morning, Hgb will need to be stable prior to discharge. She will need follow-up when she gets back to [place], will need colonoscopy as an outpatient. (2) NATALIYA (acute kidney injury): Status: Acute Assessment and plan: Creatinine improved to 1.04 today from 1.73 on ad mission. Discontinue IV fluids. Encourage p.o. fluids. Continue to follow BMP. (3) CAD (coronary artery disease): Status: Chronic Assessment and plan: History of coronary artery disease with 6 cardiac stents placed approximately 3 years ago. Continue aspirin and Plavix and monitor hemoglobin and hematocrit closely. Continue beta elmer. Repeat CBC tomorrow morning. (4) Insulin dependent diabetes mellitus: Status: Chronic Assessment and plan: Her blood glucose remains elevated. Her Tresiba was resumed yesterday at 1/2 her usual dose. Increased Tresiba at at bedtime. Con tinue to monitor blood glucose at with short acting insulin per sliding scale. (5) Seizure: Status: Acute Assessment and plan: Likely due to brain tumors. Has not had a seizure in a couple of years. Continue Keppra. (6) Brain tumor: Status: Acute Assessment and plan: History of benign brain tumors with excision at age 60. Most recent MRI showed 2 small posterior brain tumors, per patient. She is followed by neurology in [place], no plans for intervention at this time. (7) Rash: Status: Acute Assessment and plan: Nonhealing pruritic rash to right medial ankle. Place wound consult for evaluation. Patient has been using antifungal cream without improvement. (8) HTN (hypertension): Status: Chronic Assessment and plan: Blood pressure within an acceptable range with lisinopril on hold in the setting of acute kidney injury. Continue to hold lisinopril. Continue to monitor blood pressure. Continue metoprolol. (9) Hypomagnesemia: Status: Acute Assessment and plan: Resolved. Continue to monitor. (10) DVT prophylaxis: Status: Acute Assessment and plan: Continue dual antiplatelet therapy. SCDs and TEDs for mechanical DVT prophylaxis. (11) Discharge planning issues: Status: Acute Assessment and plan: She is a full code. She resides in [place]. She is in [place] visiting her son. She will need follow up when she returns to [place]. This case was discussed with Dr. Whitt who is in agreement. Subjective Subjective Interval history since last seen: Ms De La Cruz was seen by general surgery yesterday. Her diet was advanced to a low fiber diet by Dr. Salcido. The patient reports increased abdominal pain today across her lower abdomen, greater at left lower quadrant. No nausea vomiting or diarrhea. She is using the aqua K Eulalio to her abdomen for comfort with some relief. She is agreeable to decreasing her diet back to clear liquids only to see if she has some relief of abdominal pain. Nursing is requesting a physical therapy consult. She denies any other concerns such as headaches, dizziness, chest pain/pressure, palpitations, shortness of breath, coughing, wheezing. Her renal function has improved, IV fluids have been discontinued. Exam Narrative Exam Narrative: General: elderly female, laying in bed with head elevated, cloth wrap around head. Alert and oriented, pleasant and cooperative. HEENT: EOMI, pupils equal and round, mucous membranes moist. Neck: supple, no JVD. Respiratory: respirations even and unlabored, lung sounds clear throughout. Cardiovascular: Heart has regular rate and rhythm, no murmur appreciated. GI: normoactive bowel sounds, abdomen soft, tenderness noted on palpation across lower abdomen, greater at LLQ. Extremities: wound noted to right medial ankle, covered with dressing with mild erythema surrounding site. Trace edema to bilateral ankles. Pedal pulses palpab le bilaterally. Objective Objective Clinical Data: Abnormal lab results 01/15/19 01/16/19 01/16/19 Range/Units 12:25 06:08 06:08 RBC 3.40 L (4.00-5.20) m/cumm Hgb 11.3 L 10.0 L (12.0-15.5) g/dL Hct 34.8 L 30.5 L (36.0-46.0) % Absolute Lymphocytes 0.59 L (1.2-3.4) k/cumm Absolute Monocytes 0.90 H (0.11-0.7) k/cumm Chloride 110 H (98-107) mmol/L Creatinine 1.04 H (0.55-1.02) mg/dL Glucose 179 H (74-106) mg/dL Calcium 8.1 L (8.5-10.1) mg/dL Vital Signs Temperature 37.2 C 01/16/19 07:32 Temperature Source Tympanic 01/16/19 07:32 Pulse 67 01/16/19 07:32 Pulse Rhythm Regular 01/16/19 10:50 Respiratory Rate 17 01/16/19 07:32 Respiratory Effort Non-Labored 01/16/19 10:50 Respiratory Depth Normal 01/16/19 10:50 Respiratory Pattern Normal 01/16/19 10:50 Blood Pressure 103/56 L 01/16/19 07:32 Pulse Oximetry 97 01/16/19 07:32 Oxygen Delivery Method Room Air 01/16/19 07:32 Oxygen Flow Rate 0 01/16/19 07:32 Pain Level 7 01/16/19 11:45 Comment 01/14/19 13:11 Intake & Output 01/15/19 01/16/19 01/16/19 23:59 11:59 23:59 Intake Total 1300 / 1910 1521.25 / 1521.25 Output Total 200 / 300 300 / 300 Balance 1100 / 1610 1221.25 / 1221.25 Weight 70 kg Intake: IV 1300 / 1510 1401.25 / 1401.25 Oral 120 / 120 Output: Urine 200 / 300 300 / 300 Other: Urine Color Yellow Urine Appearance Clear Clear Urine Odor None Comment Urine not viewed Stool Size Small Stool Characteristics Bloody Voiding Methods Toilet Laboratory Results WBC 8.29 k/cumm (4.4-10.8) 01/16/19 06:08 RBC 3.40 m/cumm (4.00-5.20) L 01/16/19 06:08 Hgb 10.0 g/dL (12.0-15.5) L 01/16/19 06:08 Hct 30.5 % (36.0-46.0) L 01/16/19 06:08 MCV 89.7 fL (80-95) 01/16/19 06:08 MCH 29.4 pg (27.0-33.0) 01/16/19 06:08 MCHC 32.8 g/dL (32.0-36.0) 01/16/19 06:08 RDW 13.3 % (11.7-14.6) 01/16/19 06:08 Plt Count 229 x1000/uL (130-400) 01/16/19 06:08 MPV 9.8 fL (8.0-11.0) 01/16/19 06:08 Immature Gran % 0.4 01/16/19 06:08 Neutrophils % 80.5 01/16/19 06:08 Lymphocytes % 7.1 01/16/19 06:08 Monocytes % 10.9 01/16/19 06:08 Eosinophils % 1.0 01/16/19 06:08 Basophils % 0.1 01/16/19 06:08 Absolute Neutrophils 6.68 k/cumm (1.2-6.7) 01/16/19 06:08 Absolute Lymphocytes 0.59 k/cumm (1.2-3.4) L 01/16/19 06:08 Absolute Monocytes 0.90 k/cumm (0.11-0.7) H 01/16/19 06:08 Absolute Eosinophils 0.08 k/cumm (0.0-0.7) 01/16/19 06:08 Absolute Basophils 0.01 k/cumm (0.0-0.2) 01/16/19 06:08 PT 10.4 sec (9.3-11.0) 01/14/19 13:40 INR 1.0 (0.9-1.1) 01/14/19 13:40 Sodium 142 mmol/L (136-145) 01/16/19 06:08 Potassium 3.8 mmol/L (3.5-5.1) 01/16/19 06:08 Chloride 110 mmol/L (98-107) H 01/16/19 06:08 Carbon Dioxide 22.2 mmol/L (21.0-32.0) 01/16/19 06:08 Anion Gap 9.8 mmol/L (3-11) 01/16/19 06:08 BUN 12 mg/dL (7-18) D 01/16/19 06:08 Creatinine 1.04 mg/dL (0.55-1.02) H 01/16/19 06:08 Estimated GFR/1.73 m2 51.52 (mL/min/1.73m2) 01/16/19 06:08 Glucose 179 mg/dL (74-106) H 01/16/19 06:08 Lactate 1.0 mmol/L (0.6-1.4) 01/15/19 06:55 Calcium 8.1 mg/dL (8.5-10.1) L 01/16/19 06:08 Magnesium 2.0 mg/dL (1.8-2.4) 01/16/19 06:08 Total Bilirubin 0.5 mg/dL (0.2-1.0) 01/15/19 06:55 Conjugated Bilirubin 0.10 mg/dL (0.00-0.20) 01/15/19 06:55 AST 14 U/L (15-37) L 01/15/19 06:55 ALT 18 U/L (14-59) 01/15/19 06:55 Alkaline Phosphatase 186 U/L (46-116) H 01/15/19 06:55 Troponin I < 0.05 ng/Ml (<0.06) 01/14/19 16:20 C-Reactive Protein 8.77 mg/dL (0.0-0.3) H 01/15/19 06:55 NT-Pro-B Natriuret Pep 252 pg/mL (<300) 01/14/19 13:40 Total Protein 6.3 g/dL (6.4-8.2) L 01/15/19 06:55 Albumin 3.0 g/dL (3.4-5.0) L 01/15/19 06:55 Lipase 428 U/L (73-393) H 01/14/19 13:40 Urine Color Yellow (Yellow) 01/15/19 05:45 Urine Clarity Clear (Clear) 01/15/19 05:45 Urine pH 5.5 (5-8) 01/15/19 05:45 Ur Specific [place] 1.015 (1.005-1.025) 01/15/19 05:45 Urine Protein Negative mg/dL (Negative) 01/15/19 05:45 Urine Ketones Negative mg/dL (Negative) 01/15/19 05:45 Urine Blood Moderate (Negative) H 01/15/19 05:45 Urine Nitrite Negative (Negative) 01/15/19 05:45 Urine Bilirubin Negative (Negative) 01/15/19 05:45 Urine Urobilinogen 0.2 EU/dL (Up TO 0.2) 01/15/19 05:45 Ur Leukocyte Esterase Negative (Negative) 01/15/19 05:45 Urine RBC 5-10 HPF (0-2) H 01/15/19 05:45 Urine WBC 3-5 HPF (0-5) 01/15/19 05:45 Ur Epithelial Cells Few HPF (Negative) 01/15/19 05:45 Urine Crystals Negative HPF (Negative) 01/15/19 05:45 Urine Bacteria Rare HPF (Negative) 01/15/19 05:45 Urine Casts Negative LPF (Negative) 01/15/19 05:45 Urine Mucus Heavy (Negative) 01/15/19 05:45 Ur Culture Indicated? Yes 01/15/19 05:45 Urine Glucose Negative mg/dL (Negative) 01/15/19 05:45 Stool Campylobacter PCR Cancelled 01/15/19 03:50 Stool Salmonella PCR Cancelled 01/15/19 03:50 Stool Shigella PCR Cancelled 01/15/19 03:50 Shiga Toxin (PCR) Cancelled 01/15/19 03:50 Patient ABO/Rh A Negative 01/14/19 13:40 Antibody Screen Negative 01/14/19 13:40
--- NOTE | 2019-01-16 13:25 | W.INDIABCONS ---
Date of service: 01/16/19 Time of Service: 13:25 Diabetes Inpatient Consult DESCRIPTION/ASSESSMENT: Appreciate diabetes consult for Helena De La Cruz who is hospitalized with with colitis. Because she lives in [place] there is no A1c done. She manages diabetes with TReseba 24u and sitagliptin. Blood sugars here 191-245 taking sensitive insulin correction and now initiating her basal insulin at 1/2 her usual dose to be increased tonight. She is eating a clear liquid diet with advance to scrambled egg this AM. INTERVENTION: Will await effect of her usual dose of Tresiba. Given that she is visiting, no self management support suggested at this time. PLAN: Follow blood sugars and provide any nutrition support needed Time Spent in Nutritional Counseling and Treatment: 0 minutes face to face
--- NOTE | 2019-01-16 14:37 | WOUNDCARE ---
Wound Care Report Pt is a 78 year old female consulted for right medial ankle wound. Chart reviewed, including H&P, recent labs, and vital signs, and other providers? reports. Medical Hx and labs pertinent to wound healing: Pt is a uncontrolled diabetic. Hx of basal cell carcinoma on left scalp, and psoriasis. Wound Hx : Pt reports area on right medial ankle is approximately 1 year old. She states her PCP gave a Dx of a fungal skin infection and prescribed ketoconazole BID. Pt reports being compliant with application of ointment ?about 50%? of the time. Over the last year. RIGHT MEDIAL ANKLE: Wound Assessment Findings Reddened area with areas of partial thickness skin loss, d/t Pt scratching at site. Measurements 7.5x6x0.1 Reports intense itching and burning at times. Appears area has not responded well to ketoconazole as it is still present 1 year later, or improper application has led to conditioning not resolving. Unsure of actual etiology of wound. Would leave definitive Dx to MD or dermatology. Current Topical Treatment plan- Hydrocortisone ointment 2.5% currently being applied TID, Pt states the area feels better and is less itchy than it has been. Referrals Recommend dermatology. Physician/nurse practitioner notification Abiola Henley notified of wound nurses findings. Recommendations: Would recommend dermatology referral based on chronicity of wound. Thank you for the consult.
[2019-01-16] MEDS: Normal Saline Flush 10 ML SYR IVP ×2 (14:40→22:02)
--- NOTE | 2019-01-16 15:58 | PT.INIE ---
Date of service: 01/16/19 Time of Service: 14:05 PT Notes Visit Reasons: ACUTE COLITIS, NATALIYA Physical Therapy Inpatient Initial Evaluation Date: 01/16/2019 Referring Doctor: Abiola Paz NP PT Orders: PT CONSULT: Limited ability Precautions: Fall. Standard. Activity as tolerated. Patient Profile/Admitting Diagnosis: Patient is a 78-year-old female with past medical history significant for brain tumor status post resection at age 60 and CAD status post stent placement x 6 who presented to the ED on 01/14/2019 with chief complaints of nausea, vomiting, diarrhea, and abdominal pain. Patient is diagnosed with infectious colitis and acute kidney injury. PMHX: Brain tumor Hypertension Hypomagnesemia Insulin-dependent diabetes mellitus Coronary artery disease Social History/Home Situation: Patient is an [place] resident who came in for the first time to [place] to visit with his son and [id number] for the . She hopes to go back home to her son's house and eventually back to [place] as soon as she is medically cleared to do so. The son's house has 4 steps to enter onto a landing and then another 3 steps leads to the entrance of the house, rail on the left going up. Patient further reports that in [place] she lives alone in a 2 floor house with 5 steps to enter and then another 12 steps, she has another 12 steps that leads to the living of her house. Her recently . 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 Equipment Owned/DME: Wheelchair, 4-wheeled walker, cane Subjective: Patient is agreeable to a PT consult. She states that she has had 3 falls in the past 12 months. She denies any headaches, chest pain, and dizziness throughout PT consult. She does emphasize that she does not have full motor control of her left upper extremity since she had the tumor resection. Objective: General Observation: Patient seen resting in bed upon arrival of PT with [id number] present in room throughout PT consult. Telemetry monitoring in place. Mild foot drag seen on left side during ambulation activity. Mental Status: Alert and oriented x4 Pain: 0/10 ROM: Right Upper Extremity: Shoulder Flexion WFL. Shoulder abduction WFL. Elbow flexion WFL. Wrist flexion WFL. Opening and closing of hand WFL. Left Upper Extremity: Shoulder Flexion WFL. Shoulder abduction WFL. Elbow flexion WFL. Wrist flexion WFL. Opening and closing of hand WFL. Right Lower Extremity: Hip flexion WFL. Hip abduction WFL. Knee flexion WFL. Ankle dorsiflexion WFL. Ankle plantarflexion WFL. Left Lower Extremity: Hip flexion WFL. Hip abduction WFL. Knee flexion WFL. Ankle dorsiflexion WFL. Ankle plantarflexion WFL. Strength: Right Upper Extremity: Shoulder flexors 5/5. Shoulder abductors 5/5. Elbow flexors 5/5. Elbow extensors 5/5. Food Science Professor strong. Left Upper Extremity: Shoulder flexors 4/5. Shoulder abductors 4/5. Elbow flexors 3+/5. Elbow extensors 4/5. Food Science Professor strong. Right Lower Extremity: Hip flexors 5/5. Hip abductors 5/5. Knee flexors 5/5. Knee extensors 5/5. Ankle dorsiflexors 4/5. Ankle plantarflexors 4/5. Left Lower Extremity: Hip flexors 4/5. Hip abductors 4/5. Knee flexors 4-/5. Knee extensors 4/5. Ankle dorsiflexors 3+/5. Ankle plantarflexors 4/5. Sensation: Intact as to pain and pressure on bilateral lower extremities. Bed Mobility/Transfers: Rolling SBA Supine to sit SBA Sit to supine SBA Sit to stand CGA Stand to sit CGA Bed to chair CGA Chair to bed CGA Gait: Patient tolerated level surface ambulation 50 feet x 2 using the front wheeled walker with CGA of this PT and minimal verbal cueing for safe gait pattern, walker management, and safe directional changes. Patient reported that she feels weak and is hoping to regain strength back. Balance: Static Sitting: Normal Dynamic Sitting: Good Static Standing: Fair Dynamic Standing: Fair Special Tests: Mobility Limitations Standardized Measure [facility] AM-PAC 6 clicks Basic Mobility Inpatient Short Form: Raw Score: 18 CMS Score: 47% deficit 4 stage balance test: Patient is only able to tolerate feet together for 10 seconds but is unable to maintain the semi-tandem, full tandem in the one legged stance signifying at high risk for falls. Coordination testing: Patient is able to mimic resident call bilateral hand movements but is unable to follow quick rhythmical movements on bilateral feet. Patient is unable to do rapid alternating movements of bilateral upper and lower extremities. Informed Consent/Education: Patient instructed in purpose of PT consult and plan of care. Assessment: Patient is a 78-year-old female with past medical history significant for brain tumor status post resection at age 60 and CAD status post stent placement x 6 now with diagnoses of infectious colitis and acute kidney injury now presenting with impairments and functional limitations as listed below. She lives alone. She has an independent premorbid level. Her prognosis for regaining prior level of function is fair. Patient presents with clinical signs and symptoms consistent with current/admitting diagnoses that have resulted to mobility limitations, gait instability, generalized weakness, and impairment of motor control as demonstrated by the following impairment level findings: 1. Decreased strength to L LE major muscle groups 2. Impaired sitting/standing balance 3. Impaired activity tolerance Impairments are contributing to the following functional limitations: 1. Dependent bed mobility skills 2. Increased dependence with transfers 3. Inability to safely ambulate without assistive device and physical assistance 4. Increase completion time for mobility ADL performance 5. Increased fall risk 6. Inability to negotiate steps alone safely Patient is assessed as a 63305 moderate complexity based on the following: History: Patient is a 78-year-old female with past medical history significant for brain tumor status post resection at age 60 and CAD status post stent placement x 6 who presented to the ED on 01/14/2019 with chief complaints of nausea, vomiting, diarrhea, and abdominal pain. Patient is diagnosed with infectious colitis and acute kidney injury. Examination: Demonstrable impairment in strength, balance, and range of motion with underlying impairments and functional limitations as documented above Presentation:Evolving Decision Makin moderate complexity Goals: Goals X1 week 1. Supine-Sit independent 2. Sit-Supine independent 3. Sit-Stand independent 4. Stand-Sit independent 5. Bed-Chair independent 6. Chair-Bed independent 7. Independent gait on level surface with use of single-point cane for at least 300 feet without report of pain nor dyspnea 8. Independent stair negotiation while holding onto bilateral rails for at least 10 steps without report of pain nor dyspnea 9. Independent with home exercise program 10. Good static and dynamic standing balance/tolerance Plan of Care/Treatment Plan: 1-2x/day, 7 days/week x 1 week. Plan of care has been reviewed with the COVER MACHINE OPERATOR providing the service under Physical Therapy direction. Initiate Physical Therapy intervention for strengthening, bed mobility, transfers, gait, stairs, balance training, use of assistive device. DISCHARGE RECOMMENDATIONS: Patient will benefit from home health PT services upon discharge to son's home and to her home in [place] in order to progress mobility level using single-point cane, assess home safety, identify additional equipment needs, and establish a functional maintenance program that will increase ability of patient to remain at home. TREATMENT CODE/TIME: 39536 x 35 minutes beginning at 14:05 PM. Thank you very much for this referral. Romy Stanford PT, DPT, CLT [facility]
[2019-01-16] MEDS: CIPROFLOXACIN 200 MG/100 ML BAG 100 MG IVPB (17:16)
--- NOTE | 2019-01-16 19:01 | PDOC.CMPRO ---
- If Service Date Differs Date of service: 01/16/19 Time of Service: 19:01 Care Management Progress Note S/O: CM met with Helena while she was lying in bed visiting with her daughter in law. She reported that she is not feeling as well as she hoped today, and she is nervous about being sent home too early. CM discussed that she had not yet been medically cleared, as she is still acute. She reported that she ate regular food for breakfast and that she felt that she tolerated it well. She did state that she had pain after eating, while in the bathroom, but that it was normal pain for her. CM will communicate patient's concern with the provider. CM discussed her travel plans, which her daughter in law had already arranged. They have assistance in place at the airport if she leaves on 01/19/19. If she is not ready to go by then, she will travel with her daughter in law as they have a scheduled visit on 01/29/2019. CM offered to write a letter to the airline to excuse the change in flight as she missed it due to being a patient at [facility]. CM will continue to follow. A: Helena is a 78 year old female admitted to [facility] on 01/14/2019 with acute colitis, NATALIYA P: Anticipate Helena will return home, to [place], once medically cleared. She will follow up with her local PCP, as recommended by provider. Her son and daughter in law will transport her to their home and will assist with her travel plans for her return trip. CM will continue to follow and support discharge planning considerations.
[2019-01-17] VITALS (8 sets, daily range): BP systolic 106–165; BP diastolic 60–76; PULSE 61–82; RESP 16–20; TEMP 36.7–37.1; O2SAT 95–96
[2019-01-17] MEDS: metroNIDAZOLE 500 MG/100 ML BAG 100 MG IVPB (05:55)
[2019-01-17] MEDS: Normal Saline Flush 10 ML SYR IVP ×3 (05:55→07:44)
[2019-01-17] MEDS: MORPHine 2 MG/ML SYR IVP (06:22)
[2019-01-17 07:04] LABS: HCT 32.1 % (36.0-46.0); HGB 10.3 g/dL (12.0-15.5); Mean Corp. HGB Concentration 32.1 g/dL (32.0-36.0); Mean Corpuscular Hemoglobin 28.7 pg (27.0-33.0); Mean Corpuscular Volume 89.4 fL (80-95); Mean Platelet Volume 9.9 fL (8.0-11.0); Platelet Count 260 x1000/uL (130-400); RBC 3.59 m/cumm (4.00-5.20); RBC Distribution Width 13.4 % (11.7-14.6); White Blood Cell Count 8.16 k/cumm (4.4-10.8)
[2019-01-17 07:11] LABS: Anion Gap 9.4 mmol/L (3-11); BUN 8 mg/dL (7-18); CO2 22.6 mmol/L (21.0-32.0); CREATININE 0.98 mg/dL (0.55-1.02); Calcium 8.4 mg/dL (8.5-10.1); Chloride 109 mmol/L (98-107); Estimated GFR 55.18 (mL/min/1.73m2); Glucose 180 mg/dL (74-106); Potassium 3.7 mmol/L (3.5-5.1); Sodium 141 mmol/L (136-145)
[2019-01-17] MEDS: Insulin Aspart 300 UNITS/3 ML PEN SC ×4 (07:43→22:03)
[2019-01-17] MEDS: Atorvastatin 40 MG TAB PO (07:44)
[2019-01-17] MEDS: Citalopram 10 MG TAB PO (07:44)
[2019-01-17] MEDS: Aspirin E.C. 81 MG TABEC PO (07:44)
[2019-01-17] MEDS: levETIRAcetam 500 MG TAB 1000 MG PO ×2 (07:44→20:07)
[2019-01-17] MEDS: Metoprolol CR 50 MG TABCR PO ×2 (07:44→20:07)
[2019-01-17] MEDS: Clopidogrel 75 MG TAB PO (07:44)
[2019-01-17] MEDS: Acetaminophen 325 MG TAB PO ×2 (08:03→20:05)
--- NOTE | 2019-01-17 11:41 | PGE_ITS ---
Date of Service Date of service: 01/17/19 Time of Service: 11:41 Assessment and Plan Assessment and plan (1) Infectious colitis: Status: Acute Assessment and plan: Colitis vs Diverticulitis. Increased abdominal pain with advance diet. Leukocytosis resolved, lactate normal, remains afebrile. Blood noted in stool in the setting of history of coronary artery disease with cardiac stents x6 on dual antiplatelet therapy with aspirin and Plavix. General surgery, Dr. Salcido who agrees with the current management. Continue Cipro and flagyl. Her hemoglobin appears stable at 10.3. Continues to have small amount of blood per rectum. Repeat blood count tomorrow morning. Transition to oral antibiotics. Discontinue IV morphine, trial oxycodone for moderate to severe pain. She will need follow-up when she gets back to [place], will need colonoscopy as an outpatient. (2) NATALIYA (acute kidney injury): Status: Acute Assessment and plan: Resolved. Creatinine normalized today. Continue to encourage p.o. fluids. (3) CAD (coronary artery disease): Status: Chronic Assessment and plan: History of coronary artery disease with 6 cardiac stents placed approximately 3 years ago. Continue aspirin and Plavix and monitor hemoglobin and hematocrit closely. Continue beta elmer. Repeat CBC tomorrow morning. (4) Insulin dependent diabetes mellitus: Status: Chronic Assessment and plan: Her blood glucose remains elevated. Increased Tresiba to 16 units at HS. Continue to monitor blood glucose at AC with short acting insulin per sliding scale. (5) Seizure: Status: Acute Assessment and plan: Likely due to brain tumors. Has not had a seizure in a couple of years. Continue Keppra. (6) Brain tumor: Status: Acute Assessment and plan: History of benign brain tumors with excision at age 60. Most recent MRI showed 2 small posterior brain tumors, per patient. She is followed by neurology in [place], no plans for intervention at this time. Has chronic right sided weakness. Continue PT. (7) Rash: Status: Acute Assessment and plan: Nonhealing pruritic rash to right medial ankle. Wound consult recommends Dermatology follow up. (8) HTN (hypertension): Status: Chronic Assessment and plan: Blood pressure within an acceptable range resume lisinopril as NATALIYA has resolved. Continue to monitor blood pressure. Continue metoprolol. (9) Hypomagnesemia: Status: Acute Assessment and plan: Resolved. Continue to monitor. (10) DVT prophylaxis: Status: Acute Assessment and plan: Continue dual antiplatelet therapy. SCDs and TEDs for mechanical DVT prophylaxis. (11) Discharge planning issues: Status: Acute Assessment and plan: She is a full code. She resides in [place]. She is in [place] visiting her son. She will need follow up when she returns to [place]. This case was discussed with Dr. Whitt who is in agreement. Subjective Subjective Interval history since last seen: Ms De La Cruz continues to have pain across her lower abdomen, greater on the left side. She reports that she received IV morphine for pain this morning. She is tolerating a soft diet. She had a loose stool with blood earlier this morning. She denies nausea or vomiting. She has been out of bed with PT. She denies dizziness, shortness of breath, coughing, wheezing, chest pain/pressure, palpitations. She is voiding without difficulty. Her renal function normalized. She is encouraged to increase her PO fluid intake. Exam Narrative Exam Narrative: General: elderly female, laying in bed with head elevated. Alert and oriented, pleasant and cooperative. Answers questions appropriately. HEENT: EOMI, pupils equal and round, mucous membranes moist. Neck: supple, no JVD. Respiratory: respirations even and unlabored, lung sounds clear throughout. Cardiovascular: Heart has regular rate and rhythm, no murmur appreciated. GI: normoactive bowel sounds, abdomen soft, tenderness noted on palpation across lower abdomen, greater at LLQ. Extremities: rash/wound noted to right medial ankle with mild erythema surrounding site. No significant lower extremity edema. Pedal pulses palpable bilaterally. Objective Objective Clinical Data: Abnormal lab results 01/17/19 01/17/19 Range/Units 06:25 06:25 RBC 3.59 L (4.00-5.20) m/cumm Hgb 10.3 L (12.0-15.5) g/dL Hct 32.1 L (36.0-46.0) % Chloride 109 H (98-107) mmol/L Glucose 180 H (74-106) mg/dL Calcium 8.4 L (8.5-10.1) mg/dL Vital Signs Temperature 37 C 01/17/19 07:55 Temperature Source Tympanic 01/17/19 07:55 Pulse 82 01/17/19 10:45 Pulse Rhythm Regular 01/17/19 07:30 Respiratory Rate 20 01/17/19 07:55 Respiratory Effort 01/17/19 07:30 Respiratory Depth Normal 01/17/19 07:30 Respiratory Pattern Normal 01/17/19 07:30 Blood Pressure 131/62 01/17/19 07:55 Pulse Oximetry 96 01/17/19 07:55 Oxygen Delivery Method Room Air 01/17/19 07:55 Oxygen Flow Rate 0 01/17/19 07:55 Pain Level 7 01/17/19 08:03 Comment 01/14/19 13:11 Intake & Output 01/16/19 01/16/19 01/17/19 11:59 23:59 11:59 Intake Total 1521.25 / 2171.25 650 / 2171.25 120 / 120 Output Total 300 / 300 Balance 1221.25 / 1871.25 650 / 1871.25 120 / 120 Weight 70 kg 70 kg Intake: IV 1401.25 / 1601.25 200 / 1601.25 Oral 120 / 570 450 / 570 120 / 120 Output: Urine 300 / 300 Other: Urine Color Yellow Yellow Yellow Urine Appearance Clear Clear Clear Urine Odor None Comment Urine not viewed pt has voided x 3 this shift. urine not collected in hat. urine not visualized at this time Stool Size Small Large Stool Characteristics Bloody Liquid Brown Voiding Methods Toilet Toilet Toilet Laboratory Results WBC 8.16 k/cumm (4.4-10.8) 01/17/19 06:25 RBC 3.59 m/cumm (4.00-5.20) L 01/17/19 06:25 Hgb 10.3 g/dL (12.0-15.5) L 01/17/19 06:25 Hct 32.1 % (36.0-46.0) L 01/17/19 06:25 MCV 89.4 fL (80-95) 01/17/19 06:25 MCH 28.7 pg (27.0-33.0) 01/17/19 06:25 MCHC 32.1 g/dL (32.0-36.0) 01/17/19 06:25 RDW 13.4 % (11.7-14.6) 01/17/19 06:25 Plt Count 260 x1000/uL (130-400) 01/17/19 06:25 MPV 9.9 fL (8.0-11.0) 01/17/19 06:25 Immature Gran % 0.4 01/16/19 06:08 Neutrophils % 80.5 01/16/19 06:08 Lymphocytes % 7.1 01/16/19 06:08 Monocytes % 10.9 01/16/19 06:08 Eosinophils % 1.0 01/16/19 06:08 Basophils % 0.1 01/16/19 06:08 Absolute Neutrophils 6.68 k/cumm (1.2-6.7) 01/16/19 06:08 Absolute Lymphocytes 0.59 k/cumm (1.2-3.4) L 01/16/19 06:08 Absolute Monocytes 0.90 k/cumm (0.11-0.7) H 01/16/19 06:08 Absolute Eosinophils 0.08 k/cumm (0.0-0.7) 01/16/19 06:08 Absolute Basophils 0.01 k/cumm (0.0-0.2) 01/16/19 06:08 PT 10.4 sec (9.3-11.0) 01/14/19 13:40 INR 1.0 (0.9-1.1) 01/14/19 13:40 Sodium 141 mmol/L (136-145) 01/17/19 06:25 Potassium 3.7 mmol/L (3.5-5.1) 01/17/19 06:25 Chloride 109 mmol/L (98-107) H 01/17/19 06:25 Carbon Dioxide 22.6 mmol/L (21.0-32.0) 01/17/19 06:25 Anion Gap 9.4 mmol/L (3-11) 01/17/19 06:25 BUN 8 mg/dL (7-18) 01/17/19 06:25 Creatinine 0.98 mg/dL (0.55-1.02) 01/17/19 06:25 Estimated GFR/1.73 m2 55.18 (mL/min/1.73m2) 01/17/19 06:25 Glucose 180 mg/dL (74-106) H 01/17/19 06:25 Lactate 1.0 mmol/L (0.6-1.4) 01/15/19 06:55 Calcium 8.4 mg/dL (8.5-10.1) L 01/17/19 06:25 Magnesium 2.0 mg/dL (1.8-2.4) 01/16/19 06:08 Total Bilirubin 0.5 mg/dL (0.2-1.0) 01/15/19 06:55 Conjugated Bilirubin 0.10 mg/dL (0.00-0.20) 01/15/19 06:55 AST 14 U/L (15-37) L 01/15/19 06:55 ALT 18 U/L (14-59) 01/15/19 06:55 Alkaline Phosphatase 186 U/L (46-116) H 01/15/19 06:55 Troponin I < 0.05 ng/Ml (<0.06) 01/14/19 16:20 C-Reactive Protein 8.77 mg/dL (0.0-0.3) H 01/15/19 06:55 NT-Pro-B Natriuret Pep 252 pg/mL (<300) 01/14/19 13:40 Total Protein 6.3 g/dL (6.4-8.2) L 01/15/19 06:55 Albumin 3.0 g/dL (3.4-5.0) L 01/15/19 06:55 Lipase 428 U/L (73-393) H 01/14/19 13:40 Urine Color Yellow (Yellow) 01/15/19 05:45 Urine Clarity Clear (Clear) 01/15/19 05:45 Urine pH 5.5 (5-8) 01/15/19 05:45 Ur Specific Frost 1.015 (1.005-1.025) 01/15/19 05:45 Urine Protein Negative mg/dL (Negative) 01/15/19 05:45 Urine Ketones Negative mg/dL (Negative) 01/15/19 05:45 Urine Blood Moderate (Negative) H 01/15/19 05:45 Urine Nitrite Negative (Negative) 01/15/19 05:45 Urine Bilirubin Negative (Negative) 01/15/19 05:45 Urine Urobilinogen 0.2 EU/dL (Up TO 0.2) 01/15/19 05:45 Ur Leukocyte Esterase Negative (Negative) 01/15/19 05:45 Urine RBC 5-10 HPF (0-2) H 01/15/19 05:45 Urine WBC 3-5 HPF (0-5) 01/15/19 05:45 Ur Epithelial Cells Few HPF (Negative) 01/15/19 05:45 Urine Crystals Negative HPF (Negative) 01/15/19 05:45 Urine Bacteria Rare HPF (Negative) 01/15/19 05:45 Urine Casts Negative LPF (Negative) 01/15/19 05:45 Urine Mucus Heavy (Negative) 01/15/19 05:45 Ur Culture Indicated? Yes 01/15/19 05:45 Urine Glucose Negative mg/dL (Negative) 01/15/19 05:45 Stool Campylobacter PCR Cancelled 01/15/19 03:50 Stool Salmonella PCR Cancelled 01/15/19 03:50 Stool Shigella PCR Cancelled 01/15/19 03:50 Shiga Toxin (PCR) Cancelled 01/15/19 03:50 Patient ABO/Rh A Negative 01/14/19 13:40 Antibody Screen Negative 01/14/19 13:40
[2019-01-17] MEDS: oxyCODONE 5 MG TAB PO (11:51)
[2019-01-17 13:29] LABS: Campylobacter PCR Negative (Negative); Salmonella PCR Negative (Negative); Shiga Toxin PCR Negative (Negative); Shigella/Enteroinvasive Ecoli Negative (Negative)
[2019-01-17] MEDS: metroNIDAZOLE 500 MG TAB PO ×2 (13:59→22:02)
--- NOTE | 2019-01-17 16:01 | PTTR_ITS ---
Date of service: 01/17/19 Time of Service: 15:42 PT Notes Visit Reasons: ACUTE COLITIS, NATALIYA Inpatient Physical Therapy Treatment Note [facility] Date: 01/17/2019 PRECAUTIONS: Fall. Standard. Left-sided hemiparesis. SUBJECTIVE: Patient reports being very sleepy as she has been woken up all the time since admission this hospital. She hopes to go home back to [place] with a scheduled flight this coming 01/19/2019. OBJECTIVE: IV in left UE removed. PAIN: In the morning patient complained of abdominal pain at 3-4 over 10. She reports minimal pain in abdomen in the afternoon on at 02/22. BED MOBILITY/TRANSFERS Rolling L/R: Supervision Supine-sit: Supervision Sit-supine: Supervision Sit-stand: SBA Stand-sit: SBA Bed-Chair: SBA Chair-bed: SBA GAIT Assistive Device: SPC, front wheeled walker Weight bearing: Full weightbearing Assist: Minimal assist with single-point cane, contact-guard assist with front wheeled walker Distance: In the morning 120 feet +15 feet +15 feet using single-point cane with a step through gait pattern with decreased dorsiflexion on the left patient also managed three 4 inch steps and two 6 inch steps once while holding onto the rail on the left going up and on the right going down using single-point cane. In the afternoon patient tolerated 120 feet using single-point cane with same level of assist as this morning but appeared to be wobbly and with steps being asymmetrical. Patient was advised to try the front wheeled walker for short distance which better provided support and stability with walking requiring only CGA of this PT for about 20 feet. Deviation: Decreased toi. Unsteadiness evident. Asymmetric step length. ASSESSMENT: Patient reports decreasing pain on abdominal area with increased ability to participate in PT session today despite reports of being drowsy and tired. Patient significantly more stable with the use of a front wheeled walker. PLAN: Continue with PT POC with recommended referral to home health PT/OT upon return to son's home and to home in [place] in order to reduce fall risk. TREATMENT CODE/TIME: Session 1 for 37 minutes of 609325 beginning at 9:58 AM. Session 2 [place] 2 [place] [id number] beginning at 15:19 p.m. Thank you very much for this referral. Romy Stanford PT, DPT, CLT [facility] Inpatient PT at [facility]
--- NOTE | 2019-01-17 17:30 | CMPROGNOTE_ITS ---
- If Service Date Differs Date of service: 01/17/19 Time of Service: 17:30 Care Management Progress Note S/O: Helena was lying in her bed when CM met with her. She reported that she was feeling much better today, and that she was able to eat more today than she usually eats at home. Per provider, Helena is improving and may be ready to go home tomorrow. She has plans to fly back to [place] on Monday01/19/2019, with assistance provided by the airline. CM will coordinate a letter from the [facility] stating that Helena was a patient at [facility] which is why she missed her last flight. CM will continue to follow. A: Helena is a 78 year old female admitted to [facility] on 01/14/2019 with acute colitis, NATALIYA P: Anticipate Helena will return home, to [place], once medically cleared. She will follow up with her local PCP, as recommended by provider. Her son and daughter in law will transport her to their home and will assist with her travel plans for her return trip. CM will continue to follow and support discharge planning considerations.
[2019-01-17] MEDS: Ciprofloxacin 500 MG TAB PO (20:06)
[2019-01-18 00:59] VITALS: BP 147/77; PULSE 79; RESP 18; TEMP 36.7; O2SAT 95
[2019-01-18 02:42] VITALS: BP 147/77; PULSE 79; RESP 18; TEMP 36.7; O2SAT 95
[2019-01-18] MEDS: metroNIDAZOLE 500 MG TAB PO ×2 (06:14→14:24)
[2019-01-18] MEDS: Acetaminophen 325 MG TAB PO (07:07)
[2019-01-18 08:09] VITALS: BP 156/74; PULSE 62; RESP 16; TEMP 37; O2SAT 95
[2019-01-18] MEDS: Insulin Aspart 300 UNITS/3 ML PEN SC ×2 (08:51→12:03)
[2019-01-18] MEDS: Clopidogrel 75 MG TAB PO (08:51)
[2019-01-18] MEDS: levETIRAcetam 500 MG TAB 1000 MG PO (08:51)
[2019-01-18] MEDS: Citalopram 10 MG TAB PO (08:52)
[2019-01-18] MEDS: Aspirin E.C. 81 MG TABEC PO (08:52)
[2019-01-18] MEDS: Ciprofloxacin 500 MG TAB PO (08:52)
[2019-01-18] MEDS: Lisinopril 5 MG TAB 2.5 MG PO (08:52)
[2019-01-18] MEDS: Metoprolol CR 50 MG TABCR PO (08:52)
[2019-01-18] MEDS: Atorvastatin 40 MG TAB PO (08:52)
[2019-01-18] MEDS: Potassium Chloride 20 MEQ TABCR 40 MEQ PO (08:52)
[2019-01-18 11:45] VITALS: BP 145/69; PULSE 69; RESP 18; TEMP 37; O2SAT 96
--- NOTE | 2019-01-18 12:42 | W.PM.DS.N ---
Date of service: 01/18/19 Time of Service: 12:51 DS: Diagnosis Discharge Diagnosis (1) Infectious colitis: Start date: 01/18/19 Start time: 12:51 Status: Acute Asessment and Plan: Improving. Leukocytosis normalized, Afebrile. Continue antibiotics for a total of a 10 day course. (2) NATALIYA (acute kidney injury): Start date: 01/18/19 Start time: 12:51 Status: Acute Asessment and Plan: Likely in the setting of dehydration and medications. Resolved. Continue to stay hydrated (3) CAD (coronary artery disease): Start date: 01/18/19 Start time: 12:52 Status: Chronic Asessment and Plan: Stable (4) Insulin dependent diabetes mellitus: Start date: 01/18/19 Start time: 12:52 Status: Chronic Asessment and Plan: Continue home meds (5) Seizure: Start date: 01/18/19 Start time: 12:52 Status: Acute Asessment and Plan: None at this time. Continue keppra (6) Brain tumor: Status: Acute (7) Rash: Status: Acute (8) HTN (hypertension): Status: Chronic (9) Hypomagnesemia: Status: Acute (10) DVT prophylaxis: Status: Acute (11) Discharge planning issues: Status: Acute Discharge Plan Disposition Patient Disposition: HOME Condition: Good Discharge Details Chief Complaint: Nausea/Vomit/Diar Reason For Visit: ACUTE COLITIS, NATALIYA Admit Date/Time: 01/14/19 15:44 Admit Provider: Thi Whitt Attending Provider: Thi Whitt Primary Care Provider: Radhika,[facility] ED Provider: [facility] Hospital Course: 78 y.o female with PMH of DM on insulin, CAD x 6 stents, HTN, Seizures, and brain tumors, (followed by Neuro with yearly MRI) visiting here from [place] visiting her son admitted to m/s from [facility] ED for infectious collitis vs diverticulitis. She was started on IV flagyl and cipro. Over the course of her stay her pain became better with IV dilaudid she was then transitioned to PO roxicodone with little pain upon palpation. She is able to tolerate a diet without pain, her WBC count has normalized and she has been afebrile. She also presented with NATALIYA on admission but has now resolved. PT worked with her, they recommend a FWW, however she is flying back to [place] tomorrow and has a walker at home. She would like to use her cane, she will have wheelchair assistance at the airport. Ms. De La Cruz will need to finish a 10 day course of flagyl and cipro po, also will give roxicodone for pain. Surgery was consulted while she was here and agree with the plan. She denies CP, SOB, NVD. Home Meds and New Rx's Prescriptions: New metronidazole 500 mg Tablet 500 mg PO Q8H Qty: 13 RF: 0 ciprofloxacin HCl 500 mg Tablet 500 mg PO BID Qty: 13 RF: 0 oxycodone 5 mg Tablet 5 mg PO Q6H PRN PRNQty: 15 RF: 0 metronidazole [Flagyl] 500 mg tablet 500 mg PO BID Qty: 13 RF: 0 ciprofloxacin HCl [Cipro] 500 mg tablet 500 mg PO BID Qty: 13 RF: 0 oxycodone [Roxicodone] 5 mg tablet 5 mg PO Q6H PRN (Reason: pain) Qty: 15 RF: 0 Continued atorvastatin 40 mg Tablet 40 mg PO DAILY RF: 0 metoprolol succinate 50 mg Tablet Extended Release 24 Hr 50 mg PO BID RF: 0 citalopram 10 mg Tablet 10 mg PO DAILY RF: 0 clopidogrel [Plavix] 75 mg Tablet 75 mg PO DAILY RF: 0 aspirin [Aspir-81] 81 mg Tablet,Delayed Release (Dr/Ec) 81 mg PO DAILY RF: 0 spironolactone 25 mg Tablet 25 mg PO DAILY RF: 0 lorazepam [Ativan] 1 mg Tablet 1 mg PO PRN PRNRF: 0 lisinopril 2.5 mg Tablet 2.5 mg PO DAILY RF: 0 levetiracetam 1,000 mg Tablet 1,000 mg PO BID RF: 0 Januvia 50 mg Tablet 50 mg PO DAILY RF: 0 Tresiba FlexTouch U-100 100 unit/mL (3 mL) Insulin Pen 24 unit SUBCUT HS RF: 0 Discharge Instructions Instructions: Low Fiber Diet (GEN), Antibiotic Resistant Bacteria (GEN), Diverticulitis Diet (GEN), Infectious Colitis (GEN) Additional Instructions: Follow up with your primary provider in [place]. Take all of your antibiotic. Drink plenty of water while traveling. Take pain medication as needed. Have a safe trip home Seek medical attention immediately if you have chest pain, shortness of breath, severe back pain, leg swelling or dizziness. Stand Alone Forms: Nursing Discharge Form Activity:: Activity as Tolerated Equipment/Supplies:: FWW Diet:: Carb Counting DS: Summary Status at Discharge Functional status at discharge: uses cane/walker Overall status at discharge: patient is progressing back to baseline Mental Status: mental status grossly normal Speech and Movement: speech and movement normal Mood: congruent mood Affect: normal affect Exam Narrative Exam Narrative: General: elderly female, laying in bed with head elevated. Alert and oriented, pleasant and cooperative. Answers questions appropriately. HEENT: EOMI, pupils equal and round, mucous membranes moist. Neck: supple, no JVD. Respiratory: respirations even and unlabored, lung sounds clear throughout. Cardiovascular: Heart has regular rate and rhythm, no murmur appreciated. GI: normoactive bowel sounds, abdomen soft, tenderness noted on palpation across lower abdomen, greater at LLQ. Extremities: rash/wound noted to right medial ankle with mild erythema surrounding site. No significant lower extremity edema. Pedal pulses palpable bilaterally. Psych Mental Status: mental status grossly normal Speech and Movement: speech and movement normal Mood: congruent mood Affect: normal affect DS: Data Vitals/I&O Vitals and I&O: Vital Signs Temperature 37.0 C 01/18/19 11:45 Temperature Source Temporal Artery Scan 01/18/19 11:45 Pulse 69 01/18/19 11:45 Pulse Rhythm Regular 01/18/19 09:22 Respiratory Rate 18 01/18/19 11:45 Respiratory Effort Non-Labored 01/18/19 09:22 Respiratory Depth Normal 01/18/19 09:22 Respiratory Pattern Normal 01/18/19 09:22 Blood Pressure 145/69 H 01/18/19 11:45 Pulse Oximetry 96 01/18/19 11:45 Oxygen Delivery Method Room Air 01/18/19 11:45 Oxygen Flow Rate 0 01/18/19 11:45 Pain Level 4 01/18/19 11:45 Comment 01/18/19 11:45 Intake & Output 01/17/19 01/18/19 01/18/19 23:59 11:59 23:59 Intake Total 370 / 490 200 / 200 Balance 370 / 490 200 / 200 Intake: Oral 370 / 490 200 / 200 Other: Urine Color Pale Urine Appearance Clear Clear Urine Odor None Voiding Methods Toilet Data Completed and Pending Completed studies during hospitalization [Text1]: Exam(s) a CT:CT abdomen & pelvis CTA EXAM: CT ABDOMEN AND PELVIS CTA CLINICAL HISTORY: abd pain, vomiting, diarrhea, elevated lactate TECHNIQUE: Imaging Protocol: Axial CT angiography was performed with multi-slice acquisition and multi-planar and/or 3D reconstructions. CONTRAST MATERIAL: Intravenous: Omnipaque 350 Contrast volume:100 mL contrast route:IV - Oral: No COMPARISON: No exams were available for comparison FINDINGS: Vascular Structures: Abdomen: Celiac [place]/SMA: No evidence of occlusion or significant stenosis. There is atherosclerosis. Renal Arteries: Moderately severe narrowing is seen at the origin of the left renal artery. The right renal artery shows atherosclerosis. No occlusion or significant stenosis is present. There is a single renal artery perfusing each kidney. Aorta: No aneurysm. No dissection. Pelvis: Iliac Arteries: No evidence of stenosis. Soft Tissues: Liver: Normal density. No measurable mass. Gallbladder and biliary tract: No radiodense calculus or dilation. Pancreas: Normal density, no abnormal calcifications or inflammatory process. Spleen: Normal. Kidneys: Normal size, contour and axis. No radiodense stones or obstructive uropathy. No masses seen. There is a small hypodense lesion in the superior aspect of the right kidney. This is indeterminate. This likely reflects a cyst. Adrenal glands: There is nodularity of the left adrenal gland. This likely reflects benign adenoma. The right adrenal gland is unremarkable. Aorta: Abdominal portion non-dilated. Bladder: Symmetric distention, no gross wall thickening. Bowel: There is [id number] thickening of the wall of the bowel from the distal descending colon into the sigmoid colon. There do appear to be a few scattered diverticula. Mild increased attenuation in the surrounding fat is noted. The findings are suspicious for colitis. Acute diverticulitis cannot be excluded. Remainder of the bowel is unremarkable. No evidence of an acute appendicitis is present. Peritoneal cavity: No ascites, collection or mesenteric inflammatory response. No significant abdominal or pelvic adenopathy is present. Note is made of a small of fat-containing umbilical hernia Bones: Within normal limits for patient's age. IMPRESSION: 1. No evidence of occlusion or significant stenosis in the abdominal aorta, celiac axis or mesenteric arteries. Moderately severe narrowing seen at the origin of the left renal artery. 2. Bowel wall thickening in the distal descending colon into the sigmoid colon. There appear to be a few scattered diverticula. Acute diverticulitis cannot be excluded. Inflammatory or infectious colitis should also be considered 3. The findings were discussed with the Emergency Department on the date of the examination. Labs on day of discharge: Labs from last 24 hours 01/16/19 00:00 Stool Campylobacter PCR Negative Stool Salmonella PCR Negative Stool Shigella PCR Negative Shiga Toxin (PCR) Negative PFSH Medical History (Updated 01/15/19 @ 16:56 by Trini Salcido MD) Brain tumor (Acute) CAD (coronary artery disease) (Chronic) HTN (hypertension) (Chronic) Insulin dependent diabetes mellitus (Chronic) Seizure (Acute) Surgical History (Updated 01/15/19 @ 16:56 by Trini Salcido MD) H/O heart artery stent (Chronic) S/P brain surgery (Acute) Social History Smoking/Tobacco Use Status: Never Alcohol Intake: never Drug use: Never Substance use type: does not use Do you feel safe at home: Yes Do you feel safe in your relationship?: Yes
--- NOTE | 2019-01-18 13:14 | PT.INTREAT ---
Date of service: 01/18/19 Time of Service: 13:14 PT Notes Visit Reasons: ACUTE COLITIS, NATALIYA Inpatient Physical Therapy Treatment Note [facility] Date: 01/18/2019 PRECAUTIONS: Fall SUBJECTIVE: Helena is agreeable to participating in PT. OBJECTIVE: PAIN: No c/o pain BED MOBILITY/TRANSFERS Supine-sit: I Sit-supine: I Sit-stand: SBA Stand-sit: SBA GAIT Assistive Device: FWW Weight bearing: Full Assist: SBA Distance: 200' STAIRS: Up/down 3x4 and 2x6 using B rails and a step-to pattern with supervision ASSESSMENT: Patient tolerated session well without complaint. She was able to tolerate a progression in gait distance with FWW support and SBA. She would benefit from continued gait and transfer training as well as strengthening for improved mobility and activity tolerance. PLAN: As per primary PT TREATMENT CODE/TIME: 25 minutes; [id number], [id number]
--- NOTE | 2019-01-18 18:21 | PDOC.CMDIS ---
- If Service Date Differs Date of service: 01/18/19 Time of Service: 18:21 LACE Index Scoring Tool - Questions: Length of Stay (in days): 4 - 6 Acuity (Admit via E.D.?): Yes Comorbidities: Cerebrovascular Disease, Diabetes w/o Complication, Mild Liver/Renal Disease E.D. Visits: 1 - Answers: Total Score: 13 Risk of Readmission: High Risk Care Management Discharge Reason for Hospitalization: Acute Colitis, NATALIYA Discharge Plan: Helena will return home with no local services as she will return to her home in [place] on 01/19/2019. Her son will drive her home via private vehicle. She will follow up with her local PCP once she is home. CM provided a note for the airline due to their missed flight earlier in the week, at the request of Helena and her family. Patient/Family Education Needs: Review discharge instructions regarding medications, discussion of self care needs including Ask Me Three
--- NOTE | 2019-01-21 08:38 | INDS_ITS ---
Date of service: 01/21/19 Time of Service: 08:38 PT Notes Visit Reasons: ACUTE COLITIS, NATALIYA Inpatient Physical Therapy Discharge Summary Dates: 01/21/2019 Dates of Service: 01/16/2019 through 01/18/2019 This is a clinical summary of care provided on the duration of dates listed above. No charge was made in the completion of this documentation. Referring Doctor: Abiola Paz NP PT Orders: PT CONSULT: Limited ability Precautions: Fall. Standard. Activity as tolerated. Patient Profile/Admitting Diagnosis: Patient is a 78-year-old female with past medical history significant for brain tumor status post resection at age 60 and CAD status post stent placement x 6 who presented to the ED on 01/14/2019 with chief complaints of nausea, vomiting, diarrhea, and abdominal pain. Patient is diagnosed with infectious colitis and acute kidney injury. PMHX: Brain tumor Hypertension Hypomagnesemia Insulin-dependent diabetes mellitus Coronary artery disease Social History/Home Situation: Patient is an [place] resident who came in for the first time to [place] to visit with his son and [id number] for the . She hopes to go back home to her son's house and eventually back to [place] as soon as she is medically cleared to do so. The son's house has 4 steps to enter onto a landing and then another 3 steps leads to the entrance of the house, rail on the left going up. Patient further reports that in [place] she lives alone in a 2 floor house with 5 steps to enter and then another 12 steps, she has another 12 steps that leads to the living of her house. Her recently . 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 Equipment Owned/DME: Wheelchair, 4-wheeled walker, cane Subjective: NT Objective: General Observation: NT Mental Status: NT is Pain: SoRO isM: Right Upper Extremity: Shoulder Flexion WFL. Shoulder abduction WFL. Elbow flexion WFL. Wrist flexion WFL. Opening and closing of hand WFL. Left Upper Extremity: Shoulder Flexion WFL. Shoulder abduction WFL. Elbow flexion WFL. Wrist flexion WFL. Opening and closing of hand WFL. Right Lower Extremity: Hip flexion WFL. Hip abduction WFL. Knee flexion WFL. Ankle dorsiflexion WFL. Ankle plantarflexion WFL. Left Lower Extremity: Hip flexion WFL. Hip abduction WFL. Knee flexion WFL. Ankle dorsiflexion WFL. Ankle plantarflexion WFL. Strength: Right Upper Extremity: Shoulder flexors 5/5. Shoulder abductors 5/5. Elbow flexors 5/5. Elbow extensors 5/5. Investigative Research Specialist strong. Left Upper Extremity: Shoulder flexors 4/5. Shoulder abductors 4/5. Elbow flexors 3+/5. Elbow extensors 4/5. Investigative Research Specialist strong. Right Lower Extremity: Hip flexors 5/5. Hip abductors 5/5. Knee flexors 5/5. Knee extensors 5/5. Ankle dorsiflexors 4/5. Ankle plantarflexors 4/5. Left Lower Extremity: Hip flexors 4/5. Hip abductors 4/5. Knee flexors 4-/5. Knee extensors 4/5. Ankle dorsiflexors 3+/5. Ankle plantarflexors 4/5. Sensation: Intact as to pain and pressure on bilateral lower extremities. Bed Mobility/Transfers: Rolling independent as SBA Supine to sit independent Sit to supine independent Sit to stand SBA Stand to sit SBA Bed to chair SBA Chair to bed SBA Gait: Patient tolerated level surface ambulation 200 feet using the front wh eeled walker with SBA of this PT and minimal verbal cueing for safe gait pattern, walker management, and safe directional changes. She also tolerated up-and-down three 4 inch steps and two 6 inch steps while holding onto bilateral rails using step to gait pattern with a supervision Balance: Static Sitting: Normal Dynamic Sitting: Good Static Standing: Fair Dynamic Standing: Fair Assessment: Patient is a 78-year-old female with past medical history significant for brain tumor status post resection at age 60 and CAD status post stent placement x 6 now with diagnoses of infectious colitis and acute kidney injury now presenting with impairments and functional limitations as listed below. She lives alone. She has an independent premorbid level. Her prognosis for regaining prior level of function is fair. Patient continues to present with clinical signs and symptoms consistent with current/admitting diagnoses that have resulted to mobility limitations, gait instability, generalized weakness, and impairment of motor control as demonstrated by the following impairment level findings: 1. Decreased strength to L LE major muscle groups 2. Impaired standing balance 3. Impaired activity tolerance Impairments are contributing to the following functional limitations: 1. Inability to safely ambulate without assistive device and physical assistance 2. Increase completion time for mobility ADL performance 3. Increased fall risk 4. Inability to negotiate steps alone safely Patient is assessed as a 56038 moderate complexity based on the following: History: Patient is a 78-year-old female with past medical history significant for brain tumor status post resection at age 60 and CAD status post stent placement x 6 who presented to the ED on 01/14/2019 with chief complaints of nausea, vomiting, diarrhea, and abdominal pain. Patient is diagnosed with infectious colitis and acute kidney injury. Examination: Demonstrable impairment in strength, balance, and range of motion with underlying impairments and functional limitations as documented above Presentation:Evolving Decision Makin moderate complexity Goals: Goals X1 week 1. Supine-Sit independent MET 2. Sit-Supine independent MET 3. Sit-Stand independent MET 4. Stand-Sit independent MET 5. Bed-Chair independent MET 6. Chair-Bed independent MET 7. Independent gait on level surface with use of single-point cane for at least 300 feet without report of pain nor dyspnea NOT MET 8. Independent stair negotiation while holding onto bilateral rails for at least 10 steps without report of pain nor dyspnea NOT MET 9. Independent with home exercise program NOT MET 10. Good static and dynamic standing balance/tolerance NOT MET DISCHARGE RECOMMENDATIONS: Patient will benefit from home health PT services upon discharge to son's home and to her home in [place] in order to progress mobility level using single-point cane, assess home safety, identify additional equipment needs, and establish a functional maintenance program that will increase ability of patient to remain at home. TREATMENT CODE/TIME: NC. Thank you very much for this referral. Romy Stanford PT, DPT, CLT [facility]
== END 2019-01-18 15:49 | disposition home or self-care (01) | DRG 392 ==
LOC: ER 16:00 → MS 16:49
PROVIDERS: Nurse Practitioner; Admitting Provider Internal Medicine; Emergency Provider Student in an Organized Health Care Education/Training Program; Visit Provider Internal Medicine
DX: A09 Infectious gastroenteritis and colitis, unspecified (principal); N17.9 Acute kidney failure, unspecified; I95.9 Hypotension, unspecified; E86.0 Dehydration; E11.9 Type 2 diabetes mellitus without complications; Z79.4 Long term (current) use of insulin; D33.2 Benign neoplasm of brain, unspecified; R32 Unspecified urinary incontinence; I10 Essential (primary) hypertension; E83.42 Hypomagnesemia; I25.10 Atherosclerotic heart disease of native coronary artery without angina pectoris; Z95.5 Presence of coronary angioplasty implant and graft; W88.1XXS Exposure to radioactive isotopes, sequela; Z79.02 Long term (current) use of antithrombotics/antiplatelets; Z79.82 Long term (current) use of aspirin; G40.909 Epilepsy, unspecified, not intractable, without status epilepticus; Z71.3 Dietary counseling and surveillance
CPT/HCPCS: 36415; 36416; 80048; 80053; 80076; 82962; 83690; 85027; 86850; 86900; 86901; 87505; 93005; 96361; 96365; 96367; 96375; 96376; 97162; 97530; 99222; 99223; 99232; 99239; 99253; 99285; 74174; 81003; 81015; 83605; 83735; 83880; 84484; 85014; 85018; 85025; 85610; 86140; 87086; 87324; 93010; J0744; J2270; J2405; J3490